=== PATIENT | male | born 1980 | race African-American/Black ===

== ENCOUNTER 2018-06-24 14:07 | Emergency (ER) | payer OTHER ==
[2018-06-24 14:26] VITALS: TEMP 98.8; BMI 22.4
--- NOTE | 2018-06-24 16:54 | PDOC ---
History of Present Illness - General Chief Complaint: Alcohol intoxication Stated Complaint: DETOX Time Seen by Provider: 06/24/18 14:28 History Source: Patient Exam Limitations: No Limitations, Intoxication - History of Present Illness Initial Comments: CHIEF COMPLAINT: 38 y/o male who is intoxicated is here requesting detox. HISTORY OF PRESENT ILLNESS: The patient denies all complaints. He states he's been drinking a 12 pack of beer and a bottle of alcohol every day for the past 25 years and wants help. He has never been to detox in the past. Vital signs on arrival are within normal limits. REVIEW OF SYSTEMS: GENERAL/CONSTITUTIONAL: No fever/chills. HEAD, EYES, EARS, NOSE AND THROAT: No sore throat. CARDIOVASCULAR: No chest pain or shortness of breath. RESPIRATORY: No cough, wheezing, or hemoptysis. GASTROINTESTINAL: No n/v/d. GENITOURINARY: No dysuria, frequency, or change in urination. MUSCULOSKELETAL: No joint or muscle swelling or pain. No neck or back pain. SKIN: No rash or easy bruising. NEUROLOGIC: No headache, LOC. PHYSICAL EXAM: GENERAL: The patient is drowsy, intoxicated, slurring his speech but able to answer questions. HEAD: Normal with no signs of trauma. ENT: Pupils equal, round and reactive to light, extraocular movements intact, sclera anicteric, injected conjunctiva b/l. Neck supple. LUNGS: Clear to auscultation bilaterally. Normal excursion. No respiratory distress or use of accessory muscles. CV: RRR, S1/S2, no MRG. Cap refill < 2 sec. ABDOMEN: Soft, non-distended, non-tender even to deep palpation, no hepatomegaly or splenomegaly, no masses. EXTREMITIES: Normal range of motion, no edema. No tremors NEUROLOGICAL: Slurred speech, normal gait. SKIN: Warm, dry, normal turgor, no rashes or lesions noted. Past History - Past Medical History Allergies/Adverse Reactions: Allergies Allergy/AdvReac Type Severity Reaction Status Date / Time No Known Allergies Allergy Verified 06/24/18 14:24 Home Medications: Ambulatory Orders Unobtainable 06/24/18 COPD: No - Suicide/Smoking/Psychosocial Hx Smoking History: Current every day smoker Have you smoked in the past 12 months: Yes Number of Cigarettes Smoked Daily: 20 Information on smoking cessation initiated: No Hx Alcohol Use: Yes Drug/Substance Use Hx: No Substance Use Type: Alcohol *Physical Exam - Vital Signs Last Vital Signs Temp Pulse Resp BP Pulse Ox 98.8 F 90 18 124/90 98 06/24/18 14:16 06/24/18 14:16 06/24/18 14:16 06/24/18 14:16 06/24/18 14:16 Medical Decision Making - Medical Decision Making A/P: 38 y/o male who is intoxicated and would like detox. [facility] and they have no beds. Patient can walk with normal gait. Patient was willing to do push ups in the ER. Will discharge him from the ER and instructed him to try [facility] tomorrow. The patient verbalizes understanding of all instructions, has no further questions and is awaiting discharge. *DC/Admit/Observation/Transfer Diagnosis at time of Disposition: Alcohol intoxication Qualifiers: Complication of substance-induced condition: uncomplicated Qualified Code(s): F10.920 - Alcohol use, unspecified with intoxication, uncomplicated - Discharge Dispostion Disposition: HOME Condition at time of disposition: Good - Referrals Referrals: Katy Coyle [Primary Care Provider] - - Patient Instructions Printed Discharge Instructions: DI for Alcohol Abuse Additional Instructions: -Please try going to [facility] tomorrow for an open bed - Post Discharge Activity
[2018-06-24 18:14] VITALS: BP 109/78; PULSE 89
== END 2018-06-24 18:14 | disposition home or self-care (01) ==
LOC: JER 14:07
DX: F10.920 Alcohol use, unspecified with intoxication, uncomplicated (principal)
CPT/HCPCS: 99282-25

== ENCOUNTER 2018-06-24 19:27 | Inpatient (IN) | payer OTHER ==
[2018-06-24 20:48] VITALS: BMI 26.7
[2018-06-24] MEDS ORDERED: MELATONIN 5 MG TABLETS PO PRN (22:00)
--- NOTE | 2018-06-24 23:52 | HP ---
CIWA Score - CIWA Score Nausea/Vomitin (vomiting x 4) Muscle Tremors: 4-Moderate,w/Arms Extend Anxiety: 3 Agitation: 0-Normal Activity Paroxysmal Sweats: 1-Minimal Palms Moist Orientation: 2-Disoriented Date<2 days Tacttile Disturbances: 0-None Auditory Disturbances: 0-None Visual Disturbances: 0-None Headache: 3-Moderate CIWA-Ar Total Score: 16 Admission ROS S - HPI Chief Complaint: Alcohol withdrawal symptoms Allergies/Adverse Reactions: Allergies Allergy/AdvReac Type Severity Reaction Status Date / Time No Known Allergies Allergy Verified 06/24/18 14:24 History of Present Illness: 38 years old male with a long history of alcohol dependence is seeking admission to detox. Patient has been in previous detox and reports insignificant period of sobriety. He has medical history of depression and denies suicidal ideation at this time Exam Limitations: No Limitations, Intoxication - Ebola screening Have you traveled outside of the country in the last 21 days: No Have you had contact with anyone from an Ebola affected area: No Have you been sick,other than usual withdrawal symptoms: No Do you have a fever: No - Review of Systems Constitutional: Chills, Night Sweats EENT: reports: No Symptoms Reported Respiratory: reports: No Symptoms reported Cardiac: reports: No Symptoms Reported GI: reports: Nausea, Poor Appetite, Poor Fluid Intake, Vomiting, Abdominal cramping Musculoskeletal: reports: Back Pain Integumentary: reports: Dryness Neuro: reports: Headache, Tremors Endocrine: reports: No Symptoms Reported Hematology: reports: No Symptoms Reported Psychiatric: reports: Anxious, Depressed Other Systems: Reviewed and Negative Patient History - Patient Medical History Hx Anemia: No Hx Asthma: No Hx Chronic Obstructive Pulmonary Disease (COPD): No Hx Cancer: No Hx Cardiac Disorders: No Hx Congestive Heart Failure: No Hx Hypertension: No Hx Pacemaker: No HX Cerebrovascular Accident: No Hx Seizures: No Hx Dementia: No Hx Diabetes: No Hx Gastrointestinal Disorders: No Hx Liver Disease: No Hx Genitourinary Disorders: No Hx Sexually Transmitted Disorders: No Hx Renal Disease (ESRD): No Hx Thyroid Disease: No Hx Human Immunodeficiency Virus (HIV): No (Negative 2017) Hx Hepatitis C: No Hx Depression: Yes Hx Suicide Attempt: No Hx Bipolar Disorder: No Hx Schizophrenia: No - Patient Surgical History Past Surgical History: No Hx Neurologic Surgery: No Hx Cataract Extraction: No Hx Cardiac Surgery: No Hx Lung Surgery: No Hx Breast Surgery: No Hx Breast Biopsy: No Hx Abdominal Surgery: No Hx Appendectomy: No Hx Cholecystectomy: No Hx Genitourinary Surgery: No Hx Section: No Hx Orthopedic Surgery: No Anesthesia Reaction: No - PPD History Previous Implant?: Yes Documented Results: Negative w/o proof Implanted On Prior [facility] Admission?: No PPD to be Administered?: Yes - Reproductive History Patient is a Female of Child Bearing Age (11 -55 yrs old): No (Male) - Smoking Cessation Smoking history: Current every day smoker Have you smoked in the past 12 months: Yes Aproximately how many cigarettes per day: 20 Hx Chewing Tobacco Use: No Initiated information on smoking cessation: Yes 'Breaking Loose' booklet given: 06/24/18 - Substance & Tx. History Hx Alcohol Use: Yes Hx Substance Use: No Hx Substance Use Treatment: Yes - Substances Abused Alcohol Route: Oral Frequency: Daily Amount used: LIQUOR- 3 PINTS, BEER= 3 SIX PACK Age of first use: 13 Date of Last Use: 06/24/18 Family Disease History - Family Disease History Family Disease History: Diabetes: Mother (Bipolar, schizophrenia), Heart Disease : Mother, Other: Mother Admission Physical Exam [facility] - Vital Signs Vital Signs: Vital Signs - 24 hr 06/24/18 20:46 Temperature 98.1 F Pulse Rate 105 H Respiratory 18 Rate Blood Pressure 129/87 - Physical General Appearance: Yes: Moderate Distress, Tremorous, Irritable, Sweating, Anxious HEENTM: Yes: EOMI, Normal ENT Inspection, Normocephalic, Normal Voice, BRADY Respiratory: Yes: Lungs Clear, Normal Breath Sounds, No Respiratory Distress Neck: Yes: Supple Breast: Yes: Breast Exam Deferred Cardiology: Yes: Tachycardia Abdominal: Yes: Normal Bowel Sounds, Soft Back: Yes: Normal Inspection Musculoskeletal: Yes: Back pain Extremities: Yes: Tremors 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
[2018-06-24] MEDS ORDERED: MAGNESIUM HYDROX 2400MG/30ML ORAL SUSPENSION 30 ML CUP PO PRN (23:57)
[2018-06-24] MEDS ORDERED: guaiFENesin/D-METHORPHAN HB 10 ML UNIT-DOSE CUPS PO PRN (23:57)
[2018-06-24] MEDS ORDERED: P-EPHED 60MG/TRIPROLIDI 2.5MG TABLET PO PRN (23:57)
[2018-06-24] MEDS ORDERED: NICOTINE POLACRILEX 2 MG GUM BC PRN (23:57)
[2018-06-24] MEDS ORDERED: MAG HYDROX/AL HYDROX/SIMETH 30 ML UNIT-DOSE CUP PO PRN (23:57)
[2018-06-24] MEDS ORDERED: MENTHOL/PHENOL 1 EACH UD MM PRN (23:57)
[2018-06-24] MEDS ORDERED: IBUPROFEN 400 MG TABLET (FP) PO PRN (23:57)
[2018-06-24] MEDS ORDERED: LOPERAMIDE HCL 2 MG CAPSULE PO PRN (23:57)
[2018-06-24] MEDS ORDERED: chlordiazePOXIDE HCL 25 MG CAPSULE PO PRN (23:57)
[2018-06-24] MEDS ORDERED: ACETAMINOPHEN 325 MG TABLET (FP) PO PRN (23:57)
[2018-06-24] MEDS ORDERED: chlordiazePOXIDE HCL 25 MG CAPSULE PO ONE (23:57)
[2018-06-24] MEDS ORDERED: MAGNESIUM CITRATE 300 ML BOTTLE PO PRN (23:57)
[2018-06-25] MEDS: chlordiazePOXIDE HCL 25 MG CAPSULE PO SCH ×5 (01:21→23:08)
[2018-06-25] MEDS ORDERED: chlordiazePOXIDE HCL 25 MG CAPSULE PO PRN (01:31)
[2018-06-25] MEDS ORDERED: chlordiazePOXIDE HCL 25 MG CAPSULE PO SCH (05:00)
[2018-06-25 10:54] LABS: HEMOGLOBIN 11.3 GM/dL (11.7-16.9)
[2018-06-25] MEDS: NICOTINE 14 MG/24 HOURS TOPICAL PATCH TD SCH (10:55)
[2018-06-25] MEDS: PRENATAL VITAMINS W/ FOLIC ACID TABLET (FP) PO SCH (10:55)
[2018-06-25 10:56] LABS: URINE APPEARANCE CLEAR; URINE BILIRUBIN NEGATIVE (<2.0 mg/dL); URINE COLOR DKYELLOW; URINE GLUCOSE (UA) NEGATIVE (NEGATIVE); URINE KETONE TRACE (NEGATIVE); URINE LEUK ESTERASE NEGATIVE (NEGATIVE); URINE NITRITE NEGATIVE (NEGATIVE)
[2018-06-25 10:57] LABS: HEMATOCRIT 35.4 % (35.4-49); MCH 24.2 pg (25.7-33.7); MCHC 31.9 g/dl (32.0-35.9); MEAN CELL VOLUME 75.9 fl (80-96); MEAN PLT VOLUME 8.7 fl (7.5-11.1); PLATELET COUNT 182 K/MM3 (134-434); RBC 4.67 M/mm3 (4.00-5.60); RDW 15.4 % (11.9-15.9); WHITE BLOOD COUNT 4.6 K/mm3 (4.0-10.0)
[2018-06-25 11:18] LABS: URINE PROTEIN 2+ (NEGATIVE)
[2018-06-25 11:21] LABS: EPI CELLS RARE /HPF (FEW); URINE HYALINE CAST 7 /lpf; URINE MUCUS RARE
[2018-06-25 11:36] LABS: ALBUMIN 4.2 g/dl (3.4-5.0); ANION GAP 11 MMOL/L (8-16); BLOOD UREA NITROGEN 11 mg/dL (7-18); CALCIUM 9.5 mg/dL (8.5-10.1); CHLORIDE 98 mmol/L (98-107); CO2 29 mmol/L (21-32); GLUCOSE,RANDOM 133 mg/dL (74-106); POTASSIUM 4.1 mmol/L (3.5-5.1); SODIUM 138 mmol/L (136-145)
[2018-06-25 11:45] LABS: ALK PHOS 72 U/L (45-117); BILIRUBIN,TOTAL 0.3 mg/dL (0.2-1.0); SGOT/AST 43 U/L (15-37); SGPT/ALT 45 U/L (13-61); TOT PROT 9.5 g/dl (6.4-8.2)
--- NOTE | 2018-06-25 14:42 | CONSULT ---
[facility] Psychiatric Consult - Data Date of interview: 06/25/18 Admission source: [facility] Identifying data: First admission to [facility] for this 38 y/o Aa male self- referred for detoxification treatment (alcohol dependence).patient is single,a father of two,domiciled,unemployed and supported by relatives. Substance Abuse History: Confirmed in this interview.Mr He endorses a long standing history of alcohol dependence.Consumes 2-3 pints of liquor daily + 2 six packs of beer. More details in current [facility] report.Smoking history: Current every day smoker. Have you smoked in the past 12 months: Yes. Aproximately how many cigarettes per day: 20. Hx Chewing Tobacco Use: No. Initiated information on smoking cessation: Yes. 'Breaking Loose' booklet given : 06/24/18. - Substance & Tx. History. Hx Alcohol Use: Yes. Hx Substance Use : No. Hx Substance Use Treatment: Yes. - Substances Abused. Alcohol. Route: Oral. Frequency: Daily. Amount used: LIQUOR- 3 PINTS, BEER= 3 SIX PACK. Age of first use: 13. Date of Last Use: 06/24/18 Medical History: Patient endorses good general health. Psychiatric History: Patient admits to a history of two psychiatric hospitalizations ([facility] in [place]).Diagnosed with MDD.Mr He states that he has no contact with psychiatrist.Does not attend OPD clinics.Lost to follow up after his discharge in early 2018.History of one suicide attempt via overdose with pills (no recall of date). Physical/Sexual Abuse/Trauma History: Patient denies. Additional Comment: Drug Screen is negative. Mental Status Exam - Mental Status Exam Alert and Oriented to: Time, Place, Person Cognitive Function: Good Patient Appearance: Well Groomed Mood: Nervous, Withdrawn Affect: Mood Congruent Patient Behavior: Fatigued, Appropriate, Cooperative Speech Pattern: Clear Voice Loudness: Normal Thought Process: Intact, Goal Oriented Thought Disorder: Not Present Hallucinations: Denies Suicidal Ideation: Denies Homicidal Ideation: Denies Insight/Judgement: Poor Sleep: Poorly, Difficulty falling asleep Appetite: Good Muscle strength/Tone: Normal Gait/Station: Normal Psychiatric Findings - Problem List ([place] 1, 2,3) (1) Alcohol dependence with uncomplicated withdrawal Current Visit: Yes Status: Acute (2) Insomnia Current Visit: Yes Status: Acute - Initial Treatment Plan Initial Treatment Plan: Psychoeducation.Sleep hygiene.Detoxification.Groups.AA meetings.Insomnia is addressed with ambien 10 mg po hs prn.Patient made aware of risk of parasomnias.Agrees to this careplan.Observation.
--- NOTE | 2018-06-25 15:27 | PN ---
S CIWA - CIWA Score Nausea/Vomitin-No Nausea/No Vomiting Muscle Tremors: 1-None Visible, but [place] Anxiety: 0-No Anxiety, at Ease Agitation: 1-Slight > Activity Paroxysmal Sweats: 1-Minimal Palms Moist Orientation: 0-Oriented Tacttile Disturbances: 0-None Auditory Disturbances: 0-None Visual Disturbances: 0-None Headache: 0-None Present CIWA-Ar Total Score: 3 [facility] Progress Note (SOAP) Subjective: pt states he is feeling fine- on detox protocol o: Vital Signs - 24 hr 06/24/18 06/25/18 06/25/18 20:46 01:00 01:19 Temperature 98.1 F 97.7 F Pulse Rate 105 H 94 H 94 H Respiratory 18 20 20 Rate Blood Pressure 129/87 135/91 06/25/18 06/25/18 06/25/18 01:30 02:00 02:30 Temperature Pulse Rate 94 H 92 H 92 H Respiratory 20 20 20 Rate Blood Pressure 06/25/18 06/25/18 06/25/18 03:00 03:30 04:00 Temperature Pulse Rate 94 H 90 90 Respiratory 20 18 18 Rate Blood Pressure 06/25/18 06/25/18 06/25/18 04:30 05:00 05:30 Temperature Pulse Rate 88 88 74 Respiratory 18 18 18 Rate Blood Pressure 06/25/18 06/25/18 06/25/18 06:00 06:30 07:00 Temperature Pulse Rate 74 72 72 Respiratory 18 18 18 Rate Blood Pressure 06/25/18 06/25/18 06/25/18 07:16 07:20 08:00 Temperature 96.4 F L Pulse Rate 69 74 79 Respiratory 18 18 18 Rate Blood Pressure 122/68 06/25/18 06/25/18 06/25/18 08:30 08:49 09:00 Temperature 98.1 F Pulse Rate 82 83 88 Respiratory 18 Rate Blood Pressure 135/86 06/25/18 06/25/18 06/25/18 09:30 10:00 10:30 Temperature Pulse Rate 82 77 80 Respiratory 18 18 18 Rate Blood Pressure 06/25/18 14:06 Temperature 99.9 F H Pulse Rate 79 Respiratory 16 Rate Blood Pressure 127/72 Laboratory Tests 06/25/18 06/25/18 06/25/18 07:50 07:50 07:50 WBC 4.6 RBC 4.67 Hgb 11.3 L Hct 35.4 MCV 75.9 L MCH 24.2 L MCHC 31.9 L RDW 15.4 Plt Count 182 MPV 8.7 Sodium Potassium Chloride Carbon Dioxide Anion Gap BUN Creatinine Creat Clearance w eGFR Random Glucose Calcium Total Bilirubin AST ALT Alkaline Phosphatase Total Protein Albumin Urine Color Urine Appearance Urine pH Ur Specific [place] Urine Protein Urine Glucose (UA) Urine Ketones Urine Blood Urine Nitrite Urine Bilirubin Urine Urobilinogen Ur Leukocyte Esterase Urine WBC (Auto) Urine RBC (Auto) Ur Epithelial Cells Hyaline Casts Urine Mucus RPR Titer Nonreactive HIV 1&2 Antibody Screen Negative HIV P24 Antigen Negative 06/25/18 06/25/18 07:50 08:30 WBC RBC Hgb Hct MCV MCH MCHC RDW Plt Count MPV Sodium 138 Potassium 4.1 Chloride 98 Carbon Dioxide 29 Anion Gap 11 BUN 11 Creatinine 1.0 Creat Clearance w eGFR > 60 Random Glucose 133 H Calcium 9.5 Total Bilirubin 0.3 AST 43 H ALT 45 Alkaline Phosphatase 72 Total Protein 9.5 H Albumin 4.2 Urine Color Dkyellow Urine Appearance Clear Urine pH 5.0 Ur Specific [place] 1.029 Urine Protein 2+ H Urine Glucose (UA) Negative Urine Ketones Trace H Urine Blood 1+ H Urine Nitrite Negative Urine Bilirubin Negative Urine Urobilinogen 2.0 Ur Leukocyte Esterase Negative Urine WBC (Auto) 6 Urine RBC (Auto) 2 Ur Epithelial Cells Rare Hyaline Casts 7 Urine Mucus Rare RPR Titer HIV 1&2 Antibody Screen HIV P24 Antigen mild anemia with low MCV, o/w ess nl labs a/p: 38 years old male with a long history of alcohol dependence is here for detox- doing well. continue detox protocol
[2018-06-25] MEDS ORDERED: ZOLPIDEM TARTRATE 5 MG TABLET PO PRN (22:00)
[2018-06-25] MEDS: THIAMINE HCL 100 MG TABLET (FP) PO SCH (23:08)
[2018-06-26] MEDS ORDERED: chlordiazePOXIDE 5 MG CAPSULE PO SCH (05:00)
[2018-06-26] MEDS: chlordiazePOXIDE HCL 25 MG CAPSULE PO SCH ×4 (06:28→23:41)
[2018-06-26] MEDS: NICOTINE 14 MG/24 HOURS TOPICAL PATCH TD SCH (10:56)
[2018-06-26] MEDS: PRENATAL VITAMINS W/ FOLIC ACID TABLET (FP) PO SCH (10:56)
--- NOTE | 2018-06-26 15:59 | PN ---
S CIWA - CIWA Score Nausea/Vomitin-No Nausea/No Vomiting Muscle Tremors: 3 Anxiety: 3 Agitation: 3 Paroxysmal Sweats: 1-Minimal Palms Moist Orientation: 1-Uncertain about Date Tacttile Disturbances: 1-Very Mild Itch/Numbness Auditory Disturbances: 0-None Visual Disturbances: 0-None Headache: 0-None Present CIWA-Ar Total Score: 12 [facility] Progress Note (SOAP) Subjective: sweat tremor restlessness anxiety Objective: 06/26/18 16:00 Vital Signs Temperature 98.2 F 06/26/18 13:46 Pulse Rate 654 H 06/26/18 13:46 Respiratory Rate 18 06/26/18 13:46 Blood Pressure 118/70 06/26/18 13:46 O2 Sat by Pulse Oximetry (%) Laboratory Last Values WBC 4.6 K/mm3 (4.0-10.0) 06/25/18 07:50 RBC 4.67 M/mm3 (4.00-5.60) 06/25/18 07:50 Hgb 11.3 GM/dL (11.7-16.9) L 06/25/18 07:50 Hct 35.4 % (35.4-49) 06/25/18 07:50 MCV 75.9 fl (80-96) L 06/25/18 07:50 MCH 24.2 pg (25.7-33.7) L 06/25/18 07:50 MCHC 31.9 g/dl (32.0-35.9) L 06/25/18 07:50 RDW 15.4 % (11.9-15.9) 06/25/18 07:50 Plt Count 182 K/MM3 (134-434) 06/25/18 07:50 MPV 8.7 fl (7.5-11.1) 06/25/18 07:50 Sodium 138 mmol/L (136-145) 06/25/18 08:30 Potassium 4.1 mmol/L (3.5-5.1) 06/25/18 08:30 Chloride 98 mmol/L (98-107) 06/25/18 08:30 Carbon Dioxide 29 mmol/L (21-32) 06/25/18 08:30 Anion Gap 11 MMOL/L (8-16) 06/25/18 08:30 BUN 11 mg/dL (7-18) 06/25/18 08:30 Creatinine 1.0 mg/dL (0.55-1.3) 06/25/18 08:30 Creat Clearance w eGFR > 60 (>60) 06/25/18 08:30 Random Glucose 133 mg/dL (74-106) H 06/25/18 08:30 Calcium 9.5 mg/dL (8.5-10.1) 06/25/18 08:30 Total Bilirubin 0.3 mg/dL (0.2-1.0) 06/25/18 08:30 AST 43 U/L (15-37) H 06/25/18 08:30 ALT 45 U/L (13-61) 06/25/18 08:30 Alkaline Phosphatase 72 U/L (45-117) 06/25/18 08:30 Total Protein 9.5 g/dl (6.4-8.2) H 06/25/18 08:30 Albumin 4.2 g/dl (3.4-5.0) 06/25/18 08:30 Urine Color Dkyellow 06/25/18 07:50 Urine Appearance Clear 06/25/18 07:50 Urine pH 5.0 (5.0-8.0) 06/25/18 07:50 Ur Specific [place] 1.029 (1.001-1.035) 06/25/18 07:50 Urine Protein 2+ (NEGATIVE) H 06/25/18 07:50 Urine Glucose (UA) Negative (NEGATIVE) 06/25/18 07:50 Urine Ketones Trace (NEGATIVE) H 06/25/18 07:50 Urine Blood 1+ (NEGATIVE) H 06/25/18 07:50 Urine Nitrite Negative (NEGATIVE) 06/25/18 07:50 Urine Bilirubin Negative (<2.0 mg/dL) 06/25/18 07:50 Urine Urobilinogen 2.0 mg/dL (0.2-1.0) 06/25/18 07:50 Ur Leukocyte Esterase Negative (NEGATIVE) 06/25/18 07:50 Urine WBC (Auto) 6 /hpf (3-5) 06/25/18 07:50 Urine RBC (Auto) 2 /hpf (0-3) 06/25/18 07:50 Ur Epithelial Cells Rare /HPF (FEW) 06/25/18 07:50 Hyaline Casts 7 /lpf 06/25/18 07:50 Urine Mucus Rare 06/25/18 07:50 RPR Titer Nonreactive (NONREACTIVE) 06/25/18 07:50 HIV 1&2 Antibody Screen Negative 06/25/18 07:50 HIV P24 Antigen Negative 06/25/18 07:50 lab noted Assessment: 06/26/18 16:00 withdrawal sx Plan: continue detox
--- NOTE | 2018-06-26 22:32 | EKG ---
Test Reason : Blood Pressure : / mmHG Vent. Rate : 090 BPM Atrial Rate : 090 BPM P-R Int : 144 ms QRS Dur : 096 ms QT Int : 356 ms P-R-T Axes : 080 068 063 degrees QTc Int : 435 ms NORMAL SINUS RHYTHM NORMAL ECG NO PREVIOUS ECGS AVAILABLE Confirmed by MELISSA HOOD MD ([id number]) on 06/26/2018 10:31:44 PM Referred By: Confirmed By:MELISSA HOOD MD
[2018-06-26] MEDS: THIAMINE HCL 100 MG TABLET (FP) PO SCH (23:42)
[2018-06-27] MEDS ORDERED: chlordiazePOXIDE HCL 10 MG CAPSULE PO SCH (05:00)
[2018-06-27] MEDS ORDERED: chlordiazePOXIDE 5 MG CAPSULE PO SCH (05:00)
--- NOTE | 2018-06-27 08:56 | PN ---
S Progress Note (SOAP) Assessment: 06/27/18 08:57 mild withdrawal sx Plan: medically supervised detox
[2018-06-27 09:23] VITALS: BP 125/81; PULSE 70; TEMP 97.9
--- NOTE | 2018-06-27 10:12 | DS ---
[facility] Detox Discharge Summary Admission Date: 06/24/18 Discharge Date: 06/27/18 - History Present History: Alcohol Dependence Additional Comments: 38 years old male admitted on 06/21/18 for alcohol withdrawal sx denies alcohol withdrawal sx today, alert oriented x 3 no acute distress, wants to return to the medical center for medical mental and addiction issues today - Physical Exam Results Vital Signs: Vital Signs Temperature 97.9 F 06/27/18 09:22 Pulse Rate 70 06/27/18 09:22 Respiratory Rate 18 06/27/18 09:22 Blood Pressure 125/81 06/27/18 09:22 O2 Sat by Pulse Oximetry (%) Pertinent Admission Physical Exam Findings: alcohol withdrawal sx Vital Signs Temperature 97.9 F 06/27/18 09:22 Pulse Rate 70 06/27/18 09:22 Respiratory Rate 18 06/27/18 09:22 Blood Pressure 125/81 06/27/18 09:22 O2 Sat by Pulse Oximetry (%) Laboratory Last Values WBC 4.6 K/mm3 (4.0-10.0) 06/25/18 07:50 RBC 4.67 M/mm3 (4.00-5.60) 06/25/18 07:50 Hgb 11.3 GM/dL (11.7-16.9) L 06/25/18 07:50 Hct 35.4 % (35.4-49) 06/25/18 07:50 MCV 75.9 fl (80-96) L 06/25/18 07:50 MCH 24.2 pg (25.7-33.7) L 06/25/18 07:50 MCHC 31.9 g/dl (32.0-35.9) L 06/25/18 07:50 RDW 15.4 % (11.9-15.9) 06/25/18 07:50 Plt Count 182 K/MM3 (134-434) 06/25/18 07:50 MPV 8.7 fl (7.5-11.1) 06/25/18 07:50 Sodium 138 mmol/L (136-145) 06/25/18 08:30 Potassium 4.1 mmol/L (3.5-5.1) 06/25/18 08:30 Chloride 98 mmol/L (98-107) 06/25/18 08:30 Carbon Dioxide 29 mmol/L (21-32) 06/25/18 08:30 Anion Gap 11 MMOL/L (8-16) 06/25/18 08:30 BUN 11 mg/dL (7-18) 06/25/18 08:30 Creatinine 1.0 mg/dL (0.55-1.3) 06/25/18 08:30 Creat Clearance w eGFR > 60 (>60) 06/25/18 08:30 Random Glucose 133 mg/dL (74-106) H 06/25/18 08:30 Calcium 9.5 mg/dL (8.5-10.1) 06/25/18 08:30 Total Bilirubin 0.3 mg/dL (0.2-1.0) 06/25/18 08:30 AST 43 U/L (15-37) H 06/25/18 08:30 ALT 45 U/L (13-61) 06/25/18 08:30 Alkaline Phosphatase 72 U/L (45-117) 06/25/18 08:30 Total Protein 9.5 g/dl (6.4-8.2) H 06/25/18 08:30 Albumin 4.2 g/dl (3.4-5.0) 06/25/18 08:30 Urine Color Dkyellow 06/25/18 07:50 Urine Appearance Clear 06/25/18 07:50 Urine pH 5.0 (5.0-8.0) 06/25/18 07:50 Ur Specific [place] 1.029 (1.001-1.035) 06/25/18 07:50 Urine Protein 2+ (NEGATIVE) H 06/25/18 07:50 Urine Glucose (UA) Negative (NEGATIVE) 06/25/18 07:50 Urine Ketones Trace (NEGATIVE) H 06/25/18 07:50 Urine Blood 1+ (NEGATIVE) H 06/25/18 07:50 Urine Nitrite Negative (NEGATIVE) 06/25/18 07:50 Urine Bilirubin Negative (<2.0 mg/dL) 06/25/18 07:50 Urine Urobilinogen 2.0 mg/dL (0.2-1.0) 06/25/18 07:50 Ur Leukocyte Esterase Negative (NEGATIVE) 06/25/18 07:50 Urine WBC (Auto) 6 /hpf (3-5) 06/25/18 07:50 Urine RBC (Auto) 2 /hpf (0-3) 06/25/18 07:50 Ur Epithelial Cells Rare /HPF (FEW) 06/25/18 07:50 Hyaline Casts 7 /lpf 06/25/18 07:50 Urine Mucus Rare 06/25/18 07:50 RPR Titer Nonreactive (NONREACTIVE) 06/25/18 07:50 HIV 1&2 Antibody Screen Negative 06/25/18 07:50 HIV P24 Antigen Negative 06/25/18 07:50 lab noted - Treatment Hospital Course: Detox Protocol Followed, Detoxed Safely, Responded well, Discharged Condition Good, Rehab Referral Accepted Patient has Accepted a Rehab Referral to: the medical center - Medication Discharge Medications: Ambulatory Orders Unobtainable 06/24/18 - Diagnosis (1) Alcohol dependence with uncomplicated withdrawal Status: Acute - AMA Did Patient Leave Against Medical Advice: No
[2018-06-28] MEDS ORDERED: chlordiazePOXIDE HCL 10 MG CAPSULE PO SCH (05:00)
== END 2018-06-27 10:50 | disposition home or self-care (01) | DRG 775 ==
LOC: YASAS 19:27 → Y6N 23:36
PROC: HZ2ZZZZ Detoxification Services for Substance Abuse Treatment (ICD-10-PCS; principal; 2018-06-24)
DX: F10.230 Alcohol dependence with withdrawal, uncomplicated (principal); F33.9 Major depressive disorder, recurrent, unspecified; G47.00 Insomnia, unspecified; Z91.5 Personal history of self-harm
CPT/HCPCS: 36415; 80053; 81003; 81015; 85027; 86593; 87389; 93005; 93010

== ENCOUNTER 2018-06-29 03:21 | Emergency (ER) | payer OTHER ==
[2018-06-29 03:33] VITALS: BP 103/72; PULSE 98; TEMP 97.8; BMI 23.7
--- NOTE | 2018-06-29 06:43 | PDOC ---
History of Present Illness - History of Present Illness Initial Comments: 06/29/18 06:31 The patient is a 38 year old male, with a significant past medical history of alcohol abuse, who presents to the emergency department withalcohol intoxication. As per patient, he drank an excessive amount of Jordyn and a 6 pack of 12 oz beers while watching a football game. He notes that he drinks a 12 pack of beer and a bottle of alcohol every day for the past 25 years. While in the ED, he requests detox. The patient is a poor historian due to his alcohol intoxication. He denies trauma, recent fevers, chills, headache or dizziness. He denies any recent nausea, vomit, diarrhea or constipation. He denies any recent chest pain or shortness of breath. He denies any recent dysuria, frequency, urgency or hematuria. Allergies: NKA Past surgical history: None reported. Social History: Alcohol abuse. Denies drug use. <Erickson Myles - Last Filed: 06/29/18 06:31> <Mili Peralta - Last Filed: 06/29/18 07:00> - General Chief Complaint: Alcohol intoxication Stated Complaint: INTOX Time Seen by Provider: 06/29/18 04:45 Past History - Past Medical History Anemia: No Asthma: No Cancer: No Cardiac Disorders: No CVA: No COPD: No CHF: No Dementia: No Diabetes: No GI Disorders: No Disorders: No HTN: No Kidney Stones: No Liver Disease: No Seizures: No Thyroid Disease: No - Surgical History Abdominal Surgery: No Appendectomy: No Cardiac Surgery: No Cholecystectomy: No Lung Surgery: No Neurologic Surgery: No Orthopedic Surgery: No - Reproductive History Testicular Surgery: No - Suicide/Smoking/Psychosocial Hx Smoking History: Current every day smoker Have you smoked in the past 12 months: Yes Number of Cigarettes Smoked Daily: 20 Information on smoking cessation initiated: No 'Breaking Loose' booklet given: 06/24/18 Hx Alcohol Use: Yes Drug/Substance Use Hx: No (unknown) Substance Use Type: Alcohol Hx Substance Use Treatment: Yes <Erickson Myles - Last Filed: 06/29/18 06:31> <Mili Peralta - Last Filed: 06/29/18 07:00> - Past Medical History Allergies/Adverse Reactions: Allergies Allergy/AdvReac Type Severity Reaction Status Date / Time No Known Allergies Allergy Verified 06/29/18 05:13 Home Medications: Ambulatory Orders Unobtainable 06/24/18 Review of Systems - Review of Systems Comments:: 06/29/18 06:34 GENERAL/CONSTITUTIONAL: Intoxicated. No fever or chills. No weakness. HEAD, EYES, EARS, NOSE AND THROAT: No change in vision. No ear pain or discharge. No sore throat. GASTROINTESTINAL: No nausea, vomiting, diarrhea or constipation. GENITOURINARY: No dysuria, frequency, or change in urination. CARDIOVASCULAR: No chest pain or shortness of breath. RESPIRATORY: No cough, wheezing, or hemoptysis. MUSCULOSKELETAL: No joint or muscle swelling or pain. No neck or back pain. SKIN: No rash NEUROLOGIC: No headache, vertigo, loss of consciousness, or change in strength/ sensation. ENDOCRINE: No increased thirst. No abnormal weight change. HEMATOLOGIC/LYMPHATIC: No anemia, easy bleeding, or history of blood clots. ALLERGIC/IMMUNOLOGIC: No hives or skin allergy. <Nassef,Yomna - Last Filed: 06/29/18 06:31> *Physical Exam - Vital Signs Last Vital Signs Temp Pulse Resp BP Pulse Ox 97.8 F 98 H 18 103/72 97 06/29/18 03:31 06/29/18 03:31 06/29/18 03:31 06/29/18 03:31 06/29/18 03:31 - Physical Exam Comments: 06/29/18 06:34 GENERAL: Alcohol on breath. Awake, alert, and fully oriented, in no acute distress. Ambulating in ED with steady gait HEAD: No signs of trauma EYES: PERRLA, EOMI, sclera anicteric ENT: Auricles normal inspection, nares patent, oropharynx clear without exudates. Moist mucosa NECK: Normal ROM, supple, no lymphadenopathy, JVD, or masses LUNGS: Breath sounds equal, clear to auscultation bilaterally. No wheezes, and no crackles HEART: Regular rate and rhythm, normal S1 and S2, no murmurs, rubs or gallops ABDOMEN: Soft, nontender, normoactive bowel sounds. No guarding, no rebound. No masses EXTREMITIES: Normal range of motion, no edema. No clubbing or cyanosis. No cords , erythema, or tenderness BACK: No midline spinal tenderness in cervical/thoracic/lumbar region NEUROLOGICAL: Normal speech, cranial nerves intact, 5/5 strength in all 4 extremities, normal sensation to light touch in all 4 extremities, normal gait, normal tone SKIN: Warm, Dry, normal turgor, no rashes or lesions noted. <Erickson Myles - Last Filed: 06/29/18 06:31> - Vital Signs Last Vital Signs Temp Pulse Resp BP Pulse Ox 97.8 F 98 H 18 103/72 97 06/29/18 03:31 06/29/18 03:31 06/29/18 03:31 06/29/18 03:31 06/29/18 03:31 <Mili Peralta - Last Filed: 06/29/18 07:00> Medical Decision Making - Medical Decision Making 06/29/18 05:00 38yo M hx etoh abuse presents to the ED with etoh intoxication, requesting detox. No evidence of trauma. Pt ate sandwich on arrival, now sleeping. Will reassess when clinically sober. 06/29/18 06:44 Pt ambulating in ED with steady gait. On re-evaluation, no evidence of trauma. Pt is clinically sober. Requests transfer to detox. [facility] <Erickson Myles - Last Filed: 06/29/18 06:31> - Medical Decision Making 06/29/18 06:40am Call placed to [facility] for admission, no response. 6:45am Second call placed to [facility] for admission, no response. 6:55am Third call placed to [facility] for admission, no response. 7:00am Fourth call placed to [facility] for admission, no response. <Mili Peralta - Last Filed: 06/29/18 07:00>
--- NOTE | 2018-06-29 07:26 | PDOC ---
*Physical Exam - Vital Signs Last Vital Signs Temp Pulse Resp BP Pulse Ox 97.8 F 98 H 18 103/72 97 06/29/18 03:31 06/29/18 03:31 06/29/18 03:31 06/29/18 03:31 06/29/18 03:31 Medical Decision Making - Medical Decision Making 06/29/18 07:25 38 yo M who presented overnight due to alcohol intoxication pt has been aggressive to staff Pt refusing leave the ER as he would like to go to [place] [facility] I have contacted [facility] for transport to [place] [facility] Plan discussed with patient He is in agreement *DC/Admit/Observation/Transfer Diagnosis at time of Disposition: Alcohol intoxication Qualifiers: Complication of substance-induced condition: uncomplicated Qualified Code(s): F10.920 - Alcohol use, unspecified with intoxication, uncomplicated - Discharge Dispostion Disposition: HOME Condition at time of disposition: Stable Decision to Admit order: No - Referrals - Patient Instructions Printed Discharge Instructions: DI for Alcohol Abuse - Post Discharge Activity
== END 2018-06-29 07:20 | disposition home or self-care (01) ==
LOC: JER 03:21
DX: F10.920 Alcohol use, unspecified with intoxication, uncomplicated (principal); Z13.89 Encounter for screening for other disorder; F17.210 Nicotine dependence, cigarettes, uncomplicated
CPT/HCPCS: 99281-25

== ENCOUNTER 2018-06-29 23:53 | Emergency (ER) | payer OTHER ==
[2018-06-30 01:34] VITALS: BMI 23.7
--- NOTE | 2018-06-30 06:15 | PDOC ---
History of Present Illness <Mili Peralta - Last Filed: 06/30/18 06:32> - History of Present Illness Initial Comments: 06/30/18 06:32 The patient is a 38 year old male, with a significant past medical history of alcohol abuse, who presents to the emergency department with alcohol intoxication. The patient was at [facility] yesterday but was not admitted because he was intoxicated and admitted earlier in the month. He notes that he drinks a 12 pack of beer and a bottle of alcohol every day for the past 25 years. While in the ED, he requests detox. The patient is a poor historian due to his alcohol intoxication. He is ambulating in the ED requesting a chief inspector. He denies any suicidal or homicidal ideation. He denies trauma, recent fevers, chills, headache or dizziness. He denies any recent nausea, vomit, diarrhea or constipation. He denies any recent chest pain or shortness of breath. He denies any recent dysuria, frequency, urgency or hematuria. Allergies: NKA Past surgical history: None reported. Social History: Alcohol abuse. Denies drug use. 06/30/18 07:00 Pt signed out to day attending for reassessment, mgmt/dispo <Erickson Myles - Last Filed: 06/30/18 07:58> - General Chief Complaint: Alcohol intoxication Stated Complaint: INTOXICATION Time Seen by Provider: 06/30/18 06:15 Past History <Mili Peralta - Last Filed: 06/30/18 06:32> - Past Medical History Anemia: No Asthma: No Cancer: No Cardiac Disorders: No CVA: No COPD: No CHF: No Dementia: No Diabetes: No GI Disorders: No Disorders: No HTN: No Kidney Stones: No Liver Disease: No Seizures: No Thyroid Disease: No - Surgical History Abdominal Surgery: No Appendectomy: No Cardiac Surgery: No Cholecystectomy: No Lung Surgery: No Neurologic Surgery: No Orthopedic Surgery: No - Reproductive History Testicular Surgery: No - Suicide/Smoking/Psychosocial Hx Smoking History: Current every day smoker Have you smoked in the past 12 months: Yes Number of Cigarettes Smoked Daily: 20 Information on smoking cessation initiated: No 'Breaking Loose' booklet given: 06/24/18 Hx Alcohol Use: No Drug/Substance Use Hx: No Substance Use Type: Alcohol Hx Substance Use Treatment: Yes <Erickson Myles - Last Filed: 06/30/18 07:58> - Past Medical History Allergies/Adverse Reactions: Allergies Allergy/AdvReac Type Severity Reaction Status Date / Time No Known Allergies Allergy Verified 06/29/18 05:13 Home Medications: Ambulatory Orders Unobtainable 06/24/18 Review of Systems - Review of Systems Comments:: 06/30/18 06:54 GENERAL/CONSTITUTIONAL: Intoxicated. No fever or chills. No weakness. HEAD, EYES, EARS, NOSE AND THROAT: No change in vision. No ear pain or discharge. No sore throat. GASTROINTESTINAL: No nausea, vomiting, diarrhea or constipation. GENITOURINARY: No dysuria, frequency, or change in urination. CARDIOVASCULAR: No chest pain or shortness of breath. RESPIRATORY: No cough, wheezing, or hemoptysis. MUSCULOSKELETAL: No joint or muscle swelling or pain. No neck or back pain. SKIN: No rash NEUROLOGIC: No headache, vertigo, loss of consciousness, or change in strength/ sensation. ENDOCRINE: No increased thirst. No abnormal weight change. HEMATOLOGIC/LYMPHATIC: No anemia, easy bleeding, or history of blood clots. ALLERGIC/IMMUNOLOGIC: No hives or skin allergy. <Erickson Myles - Last Filed: 06/30/18 07:58> *Physical Exam - Vital Signs Last Vital Signs Temp Pulse Resp BP Pulse Ox 98.1 F 88 16 118/79 96 06/29/18 23:58 06/29/18 23:58 06/29/18 23:58 06/29/18 23:58 06/29/18 23:58 <Mili Peralta - Last Filed: 06/30/18 06:32> - Vital Signs Last Vital Signs Temp Pulse Resp BP Pulse Ox 98.1 F 88 16 118/79 96 06/29/18 23:58 06/29/18 23:58 06/29/18 23:58 06/29/18 23:58 06/29/18 23:58 - Physical Exam Comments: 06/30/18 06:54 GENERAL: Alcohol on breath. Awake, alert, and fully oriented, in no acute distress. Ambulating in ED with steady gait HEAD: No signs of trauma EYES: PERRLA, EOMI, sclera anicteric ENT: Auricles normal inspection, nares patent, oropharynx clear without exudates. Moist mucosa NECK: Normal ROM, supple, no lymphadenopathy, JVD, or masses LUNGS: Breath sounds equal, clear to auscultation bilaterally. No wheezes, and no crackles HEART: Regular rate and rhythm, normal S1 and S2, no murmurs, rubs or gallops ABDOMEN: Soft, nontender, normoactive bowel sounds. No guarding, no rebound. No masses EXTREMITIES: Normal range of motion, no edema. No clubbing or cyanosis. No cords , erythema, or tenderness BACK: No midline spinal tenderness in cervical/thoracic/lumbar region NEUROLOGICAL: Normal speech, cranial nerves intact, 5/5 strength in all 4 extremities, normal sensation to light touch in all 4 extremities, normal gait, normal tone SKIN: Warm, Dry, normal turgor, no rashes or lesions noted. <Erickson Myles - Last Filed: 06/30/18 07:58> Medical Decision Making - Medical Decision Making 06/30/18 06:54 38yo M hx etoh abuse presents to the ED with etoh abuse. Pt ambulating in ED with steady gait but still intoxicated. Will observe patient and reassess for clinical sobriety. <Erickson Myles - Last Filed: 06/30/18 07:58> *DC/Admit/Observation/Transfer - Attestations Scribe Attestion: 06/30/18 06:32 Documentation prepared by Mili Peralta, acting as medical office receptionist assistant for Erickson Myles MD. <Mili Peralta - Last Filed: 06/30/18 06:32>
[2018-06-30 08:00] VITALS: BP 104/74; PULSE 90; TEMP 98.2
--- NOTE | 2018-06-30 09:09 | PDOC ---
*Physical Exam - Vital Signs Last Vital Signs Temp Pulse Resp BP Pulse Ox 98.2 F 90 19 104/74 95 06/30/18 07:59 06/30/18 07:59 06/30/18 07:59 06/30/18 07:59 06/30/18 07:59 Medical Decision Making - Medical Decision Making 06/30/18 09:07 signed out pending sobriety. 38 year old male, with a significant past medical history of alcohol abuse, DDx. alcohol intoxication, alcohol withdrawal. drug intoxication pt monitored closely in the ED, sobriety hold. remained comfortable, no acute events, VS remain stable. at time of discharge, clinically improved, sober, speech clear, gait stable. no acute neuro changes, normal mental status. no evidence of SI or HI or psychosis. discharge in stable condition. offered detox and resources for ETOH abuse. prompt follow up encouraged. *DC/Admit/Observation/Transfer Diagnosis at time of Disposition: Alcohol intoxication - Discharge Dispostion Disposition: HOME Condition at time of disposition: Good Decision to Admit order: No - Referrals Referrals: [facility] [Provider Group] Surekha Figueroa MD [Staff Physician] - - Patient Instructions Printed Discharge Instructions: DI for Alcohol Abuse Additional Instructions: you were evaluated in the department for alcohol intoxication follow up with the detox center for your alcohol use. prompt followup encouraged, resources provided. - Post Discharge Activity
== END 2018-06-30 10:07 | disposition home or self-care (01) ==
LOC: JER 23:53
DX: F10.120 Alcohol abuse with intoxication, uncomplicated (principal); F17.210 Nicotine dependence, cigarettes, uncomplicated
CPT/HCPCS: 99282-25

== ENCOUNTER 2019-02-06 12:43 | Inpatient (IN) | payer OTHER ==
[2019-02-06 14:14] VITALS: BMI 25.1
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
[2019-02-06] MEDS ORDERED: chlordiazePOXIDE HCL 25 MG CAPSULE PO PRN (15:25)
[2019-02-06] MEDS ORDERED: NICOTINE POLACRILEX 2 MG GUM BUC PRN (15:26)
[2019-02-06] MEDS ORDERED: MENTHOL/PHENOL 1 EACH UD MM PRN (15:26)
[2019-02-06] MEDS ORDERED: ACETAMINOPHEN 325 MG TABLET (FP) PO PRN (15:26)
[2019-02-06] MEDS ORDERED: MAG HYDROX/AL HYDROX/SIMETH 30 ML UNIT-DOSE CUP PO PRN (15:26)
[2019-02-06] MEDS ORDERED: MELATONIN 5 MG TABLETS PO PRN (15:26)
[2019-02-06] MEDS ORDERED: IBUPROFEN 400 MG TABLET (FP) PO PRN (15:26)
[2019-02-06] MEDS ORDERED: MAGNESIUM CITRATE 300 ML BOTTLE PO PRN (15:26)
[2019-02-06] MEDS ORDERED: BISMUTH SUBSALICYLATE 524 MG/30 ML UD PO PRN (15:26)
[2019-02-06] MEDS ORDERED: hydrOXYzine PAMOATE 25 MG CAPSULE (FP) PO PRN (15:26)
[2019-02-06] MEDS ORDERED: MAGNESIUM HYDROX 2400MG/30ML ORAL SUSPENSION 30 ML CUP PO PRN (15:26)
[2019-02-06] MEDS: chlordiazePOXIDE HCL 25 MG CAPSULE PO SCH ×2 (18:39→22:05)
[2019-02-06] MEDS: THIAMINE HCL 100 MG TABLET (FP) PO SCH (22:04)
[2019-02-07 01:52] LABS: URINE APPEARANCE CLOUDY; URINE BILIRUBIN NEGATIVE (NEGATIVE); URINE COLOR YELLOW; URINE GLUCOSE (UA) NEGATIVE (NEGATIVE); URINE KETONE NEGATIVE (NEGATIVE); URINE LEUK ESTERASE NEGATIVE (NEGATIVE); URINE NITRITE NEGATIVE (NEGATIVE); URINE PROTEIN 2+ (NEGATIVE); URINE UROBILINOGEN 0.2 mg/dL (0.2-1.0)
[2019-02-07 02:06] LABS: EPI CELLS NONE SEEN /HPF (0-5/HPF); URINE BACTERIA NONE SEEN /hpf (NEGATIVE); URINE CASTS NONE SEEN /lpf (0-8); URINE RBC NONE SEEN /hpf (0-4); URINE WBC NONE SEEN /hpf (0-5)
[2019-02-07] MEDS: chlordiazePOXIDE HCL 25 MG CAPSULE PO SCH ×4 (06:07→22:23)
[2019-02-07 09:51] LABS: ALK PHOS 64 U/L (45-117); ANION GAP 7 MMOL/L (8-16); BILIRUBIN,TOTAL 1.3 mg/dL (0.2-1); BLOOD UREA NITROGEN 9 mg/dL (7-18); CALCIUM 9.1 mg/dL (8.5-10.1); CHLORIDE 97 mmol/L (98-107); CO2 30 mmol/L (21-32); CREATININE 1.1 mg/dL (0.55-1.3); GLUCOSE,RANDOM 77 mg/dL (74-106); POTASSIUM 3.7 mmol/L (3.5-5.1); SGOT/AST 38 U/L (15-37); SGPT/ALT 38 U/L (13-61); SODIUM 135 mmol/L (136-145); TOT PROT 8.5 g/dl (6.4-8.2)
[2019-02-07 09:53] LABS: HEMATOCRIT 35.9 % (35.4-49); HEMOGLOBIN 11.5 GM/dL (11.7-16.9); MCH 24.1 pg (25.7-33.7); MCHC 32.2 g/dl (32.0-35.9); MEAN CELL VOLUME 74.8 fl (80-96); MEAN PLT VOLUME 8.9 fl (7.5-11.1); PLATELET COUNT 133 K/MM3 (134-434); RBC 4.79 M/mm3 (4.00-5.60); RDW 14.8 % (11.9-15.9); WHITE BLOOD COUNT 4.1 K/mm3 (4.0-10.0)
[2019-02-07] MEDS: PRENATAL VITAMINS W/ FOLIC ACID TABLET (FP) PO SCH (10:16)
[2019-02-07] MEDS: NICOTINE 21 MG/24 HOURS TOPICAL PATCH TD SCH (10:16)
--- NOTE | 2019-02-07 14:58 | PN ---
S CIWA - CIWA Score Nausea/Vomitin-No Nausea/No Vomiting Muscle Tremors: 3 Anxiety: 3 Agitation: 1-Slight > Activity Paroxysmal Sweats: 3 Orientation: 0-Oriented Tacttile Disturbances: 0-None Auditory Disturbances: 2-Mild Harshness/Frighten Visual Disturbances: 2-Mild Sensitivity Headache: 0-None Present CIWA-Ar Total Score: 14 BHS Progress Note (SOAP) Subjective: Body Aches, Muscle Spasms, Tremors, Sweating. Objective: PATIENT A & O X 3, OBSERVED AMBULATING ON UNIT UNASSISTED. IN NO ACUTE DISTRESS. 02/07/19 14:56 Vital Signs Temperature 97.8 F 02/07/19 10:22 Pulse Rate 100 H 02/07/19 13:30 Respiratory Rate 18 02/07/19 13:30 Blood Pressure 133/76 02/07/19 13:25 O2 Sat by Pulse Oximetry (%) Laboratory Tests 02/06/19 02/07/19 02/07/19 16:08 07:00 07:00 WBC 4.1 RBC 4.79 Hgb 11.5 L Hct 35.9 MCV 74.8 L MCH 24.1 L MCHC 32.2 RDW 14.8 Plt Count 133 L D MPV 8.9 Sodium 135 L Potassium 3.7 Chloride 97 L Carbon Dioxide 30 Anion Gap 7 L BUN 9 Creatinine 1.1 Creat Clearance w eGFR 74.52 Random Glucose 77 Calcium 9.1 Total Bilirubin 1.3 H AST 38 H ALT 38 Alkaline Phosphatase 64 Total Protein 8.5 H Albumin 4.0 Urine Color Yellow Urine Appearance Cloudy Urine pH 5.0 Ur Specific [place] 1.018 Urine Protein 2+ H Urine Glucose (UA) Negative Urine Ketones Negative Urine Blood 1+ H Urine Nitrite Negative Urine Bilirubin Negative Urine Urobilinogen 0.2 Ur Leukocyte Esterase Negative Urine WBC (Auto) None seen Urine RBC (Auto) None seen Urine Casts (Auto) None seen U Epithel Cells (Auto) None seen Urine Bacteria (Auto) None seen RPR Titer HIV 1&2 Antibody Screen HIV P24 Antigen 02/07/19 02/07/19 07:00 07:00 WBC RBC Hgb Hct MCV MCH MCHC RDW Plt Count MPV Sodium Potassium Chloride Carbon Dioxide Anion Gap BUN Creatinine Creat Clearance w eGFR Random Glucose Calcium Total Bilirubin AST ALT Alkaline Phosphatase Total Protein Albumin Urine Color Urine Appearance Urine pH Ur Specific [place] Urine Protein Urine Glucose (UA) Urine Ketones Urine Blood Urine Nitrite Urine Bilirubin Urine Urobilinogen Ur Leukocyte Esterase Urine WBC (Auto) Urine RBC (Auto) Urine Casts (Auto) U Epithel Cells (Auto) Urine Bacteria (Auto) RPR Titer Nonreactive HIV 1&2 Antibody Screen Negative HIV P24 Antigen Negative LABS NOTED. Assessment: 02/07/19 14:57 WITHDRAWAL SYMPTOMS. THROMBOCYTOPENIA. Plan: CONTINUE DETOX. PRN BACLOFEN PO FOR BODY ACHES / MUSCLE SPASMS.
[2019-02-07] MEDS: BACLOFEN 10 MG TABLET (FP) PO PRN ×2 (16:59→22:23)
[2019-02-07] MEDS: THIAMINE HCL 100 MG TABLET (FP) PO SCH (23:09)
[2019-02-08] MEDS: chlordiazePOXIDE HCL 25 MG CAPSULE PO SCH ×2 (06:28→10:36)
[2019-02-08] MEDS: PRENATAL VITAMINS W/ FOLIC ACID TABLET (FP) PO SCH (10:35)
[2019-02-08] MEDS: NICOTINE 21 MG/24 HOURS TOPICAL PATCH TD SCH (10:36)
[2019-02-08] MEDS: NAPROXEN 500 MG TABLET (FP) PO PRN (10:38)
--- NOTE | 2019-02-08 14:15 | PN ---
S CIWA - CIWA Score Nausea/Vomitin-No Nausea/No Vomiting Muscle Tremors: None Anxiety: 3 Agitation: 1-Slight > Activity Paroxysmal Sweats: 1-Minimal Palms Moist Orientation: 0-Oriented Tacttile Disturbances: 1-Very Mild Itch/Numbness Auditory Disturbances: 0-None Visual Disturbances: 2-Mild Sensitivity Headache: 0-None Present CIWA-Ar Total Score: 8 BHS Progress Note (SOAP) Subjective: Body Aches, Anxious. Objective: PATIENT A & O X 3, OBSERVED AMBULATING ON UNIT UNASSISTED. IN NO ACUTE DISTRESS. 02/08/19 14:13 Vital Signs Temperature 99.0 F 02/08/19 13:03 Pulse Rate 86 02/08/19 13:03 Respiratory Rate 18 02/08/19 13:03 Blood Pressure 101/55 L 02/08/19 13:03 O2 Sat by Pulse Oximetry (%) Laboratory Tests 02/06/19 02/07/19 02/07/19 16:08 07:00 07:00 WBC 4.1 RBC 4.79 Hgb 11.5 L Hct 35.9 MCV 74.8 L MCH 24.1 L MCHC 32.2 RDW 14.8 Plt Count 133 L D MPV 8.9 Sodium 135 L Potassium 3.7 Chloride 97 L Carbon Dioxide 30 Anion Gap 7 L BUN 9 Creatinine 1.1 Creat Clearance w eGFR 74.52 Random Glucose 77 Calcium 9.1 Total Bilirubin 1.3 H AST 38 H ALT 38 Alkaline Phosphatase 64 Total Protein 8.5 H Albumin 4.0 Urine Color Yellow Urine Appearance Cloudy Urine pH 5.0 Ur Specific [place] 1.018 Urine Protein 2+ H Urine Glucose (UA) Negative Urine Ketones Negative Urine Blood 1+ H Urine Nitrite Negative Urine Bilirubin Negative Urine Urobilinogen 0.2 Ur Leukocyte Esterase Negative Urine WBC (Auto) None seen Urine RBC (Auto) None seen Urine Casts (Auto) None seen U Epithel Cells (Auto) None seen Urine Bacteria (Auto) None seen RPR Titer HIV 1&2 Antibody Screen HIV P24 Antigen 02/07/19 02/07/19 07:00 07:00 WBC RBC Hgb Hct MCV MCH MCHC RDW Plt Count MPV Sodium Potassium Chloride Carbon Dioxide Anion Gap BUN Creatinine Creat Clearance w eGFR Random Glucose Calcium Total Bilirubin AST ALT Alkaline Phosphatase Total Protein Albumin Urine Color Urine Appearance Urine pH Ur Specific [place] Urine Protein Urine Glucose (UA) Urine Ketones Urine Blood Urine Nitrite Urine Bilirubin Urine Urobilinogen Ur Leukocyte Esterase Urine WBC (Auto) Urine RBC (Auto) Urine Casts (Auto) U Epithel Cells (Auto) Urine Bacteria (Auto) RPR Titer Nonreactive HIV 1&2 Antibody Screen Negative HIV P24 Antigen Negative LABS NOTED. Assessment: 02/08/19 14:14 WITHDRAWAL SYMPTOMS. THROMBOCYROPENIA. 02/08/19 14:14 Plan: CONTINUE DETOX. PRN NAPROXEN PO FOR BODY ACHES (PATIENT ALSO REPORTS HISTORY OF CHRONIC INJURY IN LOWER BACK AND LEGS).
[2019-02-08] MEDS ORDERED: chlordiazePOXIDE HCL 10 MG CAPSULE PO PRN (17:00)
[2019-02-08] MEDS: chlordiazePOXIDE HCL 10 MG CAPSULE PO SCH ×2 (17:29→23:07)
--- NOTE | 2019-02-08 21:48 | PN ---
[facility] Progress Note Note: Patient w/ multiple complaints. Refuses to let this provider do a physical assessment. Pacing floor. Gait steady. Respirations unlabored. Requesting names for Nursing, Counseling, and Medical supervisors, as well as phone number for [facility]. Information provided to patient by nurse. Vital Signs 02/08/19 02/08/19 17:08 21:34 Temperature 98.2 F 99.9 F H Pulse Rate 69 75 Respiratory 18 18 Rate Blood Pressure 140/93 120/50 L Laboratory Last Values WBC 4.1 K/mm3 (4.0-10.0) 02/07/19 07:00 RBC 4.79 M/mm3 (4.00-5.60) 02/07/19 07:00 Hgb 11.5 GM/dL (11.7-16.9) L 02/07/19 07:00 Hct 35.9 % (35.4-49) 02/07/19 07:00 MCV 74.8 fl (80-96) L 02/07/19 07:00 MCH 24.1 pg (25.7-33.7) L 02/07/19 07:00 MCHC 32.2 g/dl (32.0-35.9) 02/07/19 07:00 RDW 14.8 % (11.9-15.9) 02/07/19 07:00 Plt Count 133 K/MM3 (134-434) L D 02/07/19 07:00 MPV 8.9 fl (7.5-11.1) 02/07/19 07:00 Sodium 135 mmol/L (136-145) L 02/07/19 07:00 Potassium 3.7 mmol/L (3.5-5.1) 02/07/19 07:00 Chloride 97 mmol/L (98-107) L 02/07/19 07:00 Carbon Dioxide 30 mmol/L (21-32) 02/07/19 07:00 Anion Gap 7 MMOL/L (8-16) L 02/07/19 07:00 BUN 9 mg/dL (7-18) 02/07/19 07:00 Creatinine 1.1 mg/dL (0.55-1.3) 02/07/19 07:00 Creat Clearance w eGFR 74.52 (>60) 02/07/19 07:00 Random Glucose 77 mg/dL (74-106) 02/07/19 07:00 Calcium 9.1 mg/dL (8.5-10.1) 02/07/19 07:00 Total Bilirubin 1.3 mg/dL (0.2-1) H 02/07/19 07:00 AST 38 U/L (15-37) H 02/07/19 07:00 ALT 38 U/L (13-61) 02/07/19 07:00 Alkaline Phosphatase 64 U/L (45-117) 02/07/19 07:00 Total Protein 8.5 g/dl (6.4-8.2) H 02/07/19 07:00 Albumin 4.0 g/dl (3.4-5.0) 02/07/19 07:00 Urine Color Yellow 02/06/19 16:08 Urine Appearance Cloudy 02/06/19 16:08 Urine pH 5.0 (5.0-8.0) 02/06/19 16:08 Ur Specific [place] 1.018 (1.010-1.035) 02/06/19 16:08 Urine Protein 2+ (NEGATIVE) H 02/06/19 16:08 Urine Glucose (UA) Negative (NEGATIVE) 02/06/19 16:08 Urine Ketones Negative (NEGATIVE) 02/06/19 16:08 Urine Blood 1+ (NEGATIVE) H 02/06/19 16:08 Urine Nitrite Negative (NEGATIVE) 02/06/19 16:08 Urine Bilirubin Negative (NEGATIVE) 02/06/19 16:08 Urine Urobilinogen 0.2 mg/dL (0.2-1.0) 02/06/19 16:08 Ur Leukocyte Esterase Negative (NEGATIVE) 02/06/19 16:08 Urine WBC (Auto) None seen /hpf (0-5) 02/06/19 16:08 Urine RBC (Auto) None seen /hpf (0-4) 02/06/19 16:08 Urine Casts (Auto) None seen /lpf (0-8) 02/06/19 16:08 U Epithel Cells (Auto) None seen /HPF (0-5/HPF) 02/06/19 16:08 Urine Bacteria (Auto) None seen /hpf (NEGATIVE) 02/06/19 16:08 RPR Titer Nonreactive (NONREACTIVE) 02/07/19 07:00 HIV 1&2 Antibody Screen Negative 02/07/19 07:00 HIV P24 Antigen Negative 02/07/19 07:00 Labs reviewed.
[2019-02-08] MEDS: THIAMINE HCL 100 MG TABLET (FP) PO SCH (23:07)
[2019-02-09] MEDS: chlordiazePOXIDE HCL 10 MG CAPSULE PO SCH ×3 (05:52→18:41)
[2019-02-09] MEDS: NAPROXEN 500 MG TABLET (FP) PO PRN ×2 (06:39→22:24)
[2019-02-09] MEDS: PRENATAL VITAMINS W/ FOLIC ACID TABLET (FP) PO SCH (10:21)
[2019-02-09] MEDS: NICOTINE 21 MG/24 HOURS TOPICAL PATCH TD SCH (10:22)
[2019-02-09] MEDS: BACLOFEN 10 MG TABLET (FP) PO PRN ×2 (10:24→22:21)
--- NOTE | 2019-02-09 12:27 | PN ---
S CIWA - CIWA Score Nausea/Vomitin-No Nausea/No Vomiting Muscle Tremors: None Anxiety: 4-Mod. Anxious/Guarded Agitation: 3 Paroxysmal Sweats: No Perspiration Orientation: 0-Oriented Tacttile Disturbances: 1-Very Mild Itch/Numbness Auditory Disturbances: 0-None Visual Disturbances: 0-None Headache: 0-None Present CIWA-Ar Total Score: 8 BHS Progress Note (SOAP) Subjective: Anxious, Body Aches (Patient also Reports History Of Chronic Musculoskeletal Disorder affecting Lower Back and Legs). Objective: PATIENT A & O X 3, OBSERVED AMBULATING ON UNIT UNASSISTED. IN NO ACUTE DISTRESS. 02/09/19 12:24 Vital Signs Temperature 98.6 F 02/09/19 10:00 Pulse Rate 84 02/09/19 10:00 Respiratory Rate 18 02/09/19 10:00 Blood Pressure 126/76 02/09/19 10:00 O2 Sat by Pulse Oximetry (%) Laboratory Tests 02/06/19 02/07/19 02/07/19 16:08 07:00 07:00 WBC 4.1 RBC 4.79 Hgb 11.5 L Hct 35.9 MCV 74.8 L MCH 24.1 L MCHC 32.2 RDW 14.8 Plt Count 133 L D MPV 8.9 Sodium 135 L Potassium 3.7 Chloride 97 L Carbon Dioxide 30 Anion Gap 7 L BUN 9 Creatinine 1.1 Creat Clearance w eGFR 74.52 Random Glucose 77 Calcium 9.1 Total Bilirubin 1.3 H AST 38 H ALT 38 Alkaline Phosphatase 64 Total Protein 8.5 H Albumin 4.0 Urine Color Yellow Urine Appearance Cloudy Urine pH 5.0 Ur Specific [place] 1.018 Urine Protein 2+ H Urine Glucose (UA) Negative Urine Ketones Negative Urine Blood 1+ H Urine Nitrite Negative Urine Bilirubin Negative Urine Urobilinogen 0.2 Ur Leukocyte Esterase Negative Urine WBC (Auto) None seen Urine RBC (Auto) None seen Urine Casts (Auto) None seen U Epithel Cells (Auto) None seen Urine Bacteria (Auto) None seen RPR Titer HIV 1&2 Antibody Screen HIV P24 Antigen 02/07/19 02/07/19 07:00 07:00 WBC RBC Hgb Hct MCV MCH MCHC RDW Plt Count MPV Sodium Potassium Chloride Carbon Dioxide Anion Gap BUN Creatinine Creat Clearance w eGFR Random Glucose Calcium Total Bilirubin AST ALT Alkaline Phosphatase Total Protein Albumin Urine Color Urine Appearance Urine pH Ur Specific [place] Urine Protein Urine Glucose (UA) Urine Ketones Urine Blood Urine Nitrite Urine Bilirubin Urine Urobilinogen Ur Leukocyte Esterase Urine WBC (Auto) Urine RBC (Auto) Urine Casts (Auto) U Epithel Cells (Auto) Urine Bacteria (Auto) RPR Titer Nonreactive HIV 1&2 Antibody Screen Negative HIV P24 Antigen Negative LABS NOTED. Assessment: 02/09/19 12:24 WITHDRAWAL SYMPTOMS. THROMBOCYTOPENIA. 02/09/19 12:25 Plan: CONTINUE DETOX. INCREASE DAILY PO FLUID / WATER INTAKE. PRN BACLOFEN PO, PRN NAROXEN PO FOR BODY ACHES / MUSCLE SPASMS.
[2019-02-09] MEDS: THIAMINE HCL 100 MG TABLET (FP) PO SCH (22:22)
[2019-02-10] MEDS: chlordiazePOXIDE HCL 10 MG CAPSULE PO SCH (06:44)
[2019-02-10 06:47] VITALS: BP 96/63; PULSE 60; TEMP 97
--- NOTE | 2019-02-10 18:32 | PN ---
S CIWA - CIWA Score Nausea/Vomitin-No Nausea/No Vomiting Muscle Tremors: None Anxiety: 2 Agitation: 1-Slight > Activity Paroxysmal Sweats: No Perspiration Orientation: 0-Oriented Tacttile Disturbances: 0-None Auditory Disturbances: 0-None Visual Disturbances: 0-None Headache: 0-None Present CIWA-Ar Total Score: 3 BHS Progress Note (SOAP) Subjective: Anxious (Mild). Objective: PATIENT A & O X 3, OBSERVED AMBULATING ON UNIT UNASSISTED. IN NO ACUTE DISTRESS. 02/10/19 18:30 Vital Signs Temperature 97 F L 02/10/19 06:46 Pulse Rate 60 02/10/19 06:46 Respiratory Rate 16 02/10/19 06:46 Blood Pressure 96/63 02/10/19 06:46 O2 Sat by Pulse Oximetry (%) Laboratory Tests 02/06/19 02/07/19 02/07/19 16:08 07:00 07:00 WBC 4.1 RBC 4.79 Hgb 11.5 L Hct 35.9 MCV 74.8 L MCH 24.1 L MCHC 32.2 RDW 14.8 Plt Count 133 L D MPV 8.9 Sodium 135 L Potassium 3.7 Chloride 97 L Carbon Dioxide 30 Anion Gap 7 L BUN 9 Creatinine 1.1 Creat Clearance w eGFR 74.52 Random Glucose 77 Calcium 9.1 Total Bilirubin 1.3 H AST 38 H ALT 38 Alkaline Phosphatase 64 Total Protein 8.5 H Albumin 4.0 Urine Color Yellow Urine Appearance Cloudy Urine pH 5.0 Ur Specific [place] 1.018 Urine Protein 2+ H Urine Glucose (UA) Negative Urine Ketones Negative Urine Blood 1+ H Urine Nitrite Negative Urine Bilirubin Negative Urine Urobilinogen 0.2 Ur Leukocyte Esterase Negative Urine WBC (Auto) None seen Urine RBC (Auto) None seen Urine Casts (Auto) None seen U Epithel Cells (Auto) None seen Urine Bacteria (Auto) None seen RPR Titer HIV 1&2 Antibody Screen HIV P24 Antigen 02/07/19 02/07/19 07:00 07:00 WBC RBC Hgb Hct MCV MCH MCHC RDW Plt Count MPV Sodium Potassium Chloride Carbon Dioxide Anion Gap BUN Creatinine Creat Clearance w eGFR Random Glucose Calcium Total Bilirubin AST ALT Alkaline Phosphatase Total Protein Albumin Urine Color Urine Appearance Urine pH Ur Specific [place] Urine Protein Urine Glucose (UA) Urine Ketones Urine Blood Urine Nitrite Urine Bilirubin Urine Urobilinogen Ur Leukocyte Esterase Urine WBC (Auto) Urine RBC (Auto) Urine Casts (Auto) U Epithel Cells (Auto) Urine Bacteria (Auto) RPR Titer Nonreactive HIV 1&2 Antibody Screen Negative HIV P24 Antigen Negative LABS NOTED. Assessment: 02/10/19 18:30 COMPLETION OF DETOX REGIMEN. Plan: PATIENT REPORTS THAT CURRENT WITHDRAWAL SYMPTOMS IS VERY MILD IN DEGREE AND THAT HE FEELS WELL AT THIS TIME, AT HIS REQUEST, HE WAS DISCHARGED FROM DETOX UNIT TODAY. PATIENT WILL RETURN HOME FOR TODAY, AND THEN WILL APPLY FOR ADMISSION ON HIS OWN TO [facility] ([place], [place]) TOMORROW.
--- NOTE | 2019-02-10 18:36 | DS ---
[facility] Detox Discharge Summary Admission Date: 02/06/19 Discharge Date: 02/10/19 - History Present History: Alcohol Dependence Additional Comments: PATIENT REPORTS THAT CURRENT WITHDRAWAL / DETOX SYMPTOMS ARE MINIMAL IN DEGREE AND THAT HE FEELS WELL OVERALL AT TIME OF DISCHARGE FROM DETOX UNIT. PATIENT RETURNING HOME FOR TODAY TO ATTEND TO PERSONAL MATTER, THEN WILL APPLY ON HIS TO [facility] ([place], [place]) TOMORROW. PATIENT WAS DISCHARGED FROM DETOX UNIT IN STABLE MEDICAL CONDITION. Pertinent Past History: Depression, Nicotine Dependence, Thrombocytopenia. - Physical Exam Results Vital Signs: Vital Signs Temperature 97 F L 02/10/19 06:46 Pulse Rate 60 02/10/19 06:46 Respiratory Rate 16 02/10/19 06:46 Blood Pressure 96/63 02/10/19 06:46 O2 Sat by Pulse Oximetry (%) Pertinent Admission Physical Exam Findings: WITHDRAWAL SYMPTOMS. Laboratory Tests 02/06/19 02/07/19 02/07/19 16:08 07:00 07:00 WBC 4.1 RBC 4.79 Hgb 11.5 L Hct 35.9 MCV 74.8 L MCH 24.1 L MCHC 32.2 RDW 14.8 Plt Count 133 L D MPV 8.9 Sodium 135 L Potassium 3.7 Chloride 97 L Carbon Dioxide 30 Anion Gap 7 L BUN 9 Creatinine 1.1 Creat Clearance w eGFR 74.52 Random Glucose 77 Calcium 9.1 Total Bilirubin 1.3 H AST 38 H ALT 38 Alkaline Phosphatase 64 Total Protein 8.5 H Albumin 4.0 Urine Color Yellow Urine Appearance Cloudy Urine pH 5.0 Ur Specific [place] 1.018 Urine Protein 2+ H Urine Glucose (UA) Negative Urine Ketones Negative Urine Blood 1+ H Urine Nitrite Negative Urine Bilirubin Negative Urine Urobilinogen 0.2 Ur Leukocyte Esterase Negative Urine WBC (Auto) None seen Urine RBC (Auto) None seen Urine Casts (Auto) None seen U Epithel Cells (Auto) None seen Urine Bacteria (Auto) None seen RPR Titer HIV 1&2 Antibody Screen HIV P24 Antigen 02/07/19 02/07/19 07:00 07:00 WBC RBC Hgb Hct MCV MCH MCHC RDW Plt Count MPV Sodium Potassium Chloride Carbon Dioxide Anion Gap BUN Creatinine Creat Clearance w eGFR Random Glucose Calcium Total Bilirubin AST ALT Alkaline Phosphatase Total Protein Albumin Urine Color Urine Appearance Urine pH Ur Specific [place] Urine Protein Urine Glucose (UA) Urine Ketones Urine Blood Urine Nitrite Urine Bilirubin Urine Urobilinogen Ur Leukocyte Esterase Urine WBC (Auto) Urine RBC (Auto) Urine Casts (Auto) U Epithel Cells (Auto) Urine Bacteria (Auto) RPR Titer Nonreactive HIV 1&2 Antibody Screen Negative HIV P24 Antigen Negative LABS NOTED. - Treatment Hospital Course: Detox Protocol Followed, Detoxed Safely, Responded well, Discharged Condition Good, Rehab Referral Accepted Patient has Accepted a Rehab Referral to: [facility] ([place], [place]). - Medication Discharge Medications: Ambulatory Orders NK [No Known Home Medication] 02/06/19 - Diagnosis (1) Alcohol dependence with uncomplicated withdrawal Status: Acute (2) Thrombocytopenia Status: Acute (3) Nicotine dependence Status: Chronic Qualifiers: Nicotine product type: cigarettes Substance use status: uncomplicated Qualified Code(s): F17.210 - Nicotine dependence, cigarettes, uncomplicated - AMA Did Patient Leave Against Medical Advice: No
== END 2019-02-10 10:50 | disposition home or self-care (01) | DRG 775 ==
LOC: YASAS 12:43 → Y6N 15:54
PROVIDERS: ADMIT Surgery; ATTEND Surgery
PROC: HZ2ZZZZ Detoxification Services for Substance Abuse Treatment (ICD-10-PCS; principal; 2019-02-06)
DX: F10.230 Alcohol dependence with withdrawal, uncomplicated (principal); F17.210 Nicotine dependence, cigarettes, uncomplicated; F32.9 Major depressive disorder, single episode, unspecified; D69.6 Thrombocytopenia, unspecified; G47.00 Insomnia, unspecified
CPT/HCPCS: 36415; 80053; 81003; 85027; 86593; 87389; J0475

== ENCOUNTER 2021-01-17 15:33 | Inpatient (IN) | payer OTHER ==
[2021-01-17 16:53] VITALS: BMI 22.3
[2021-01-17] MEDS ORDERED: chlordiazePOXIDE HCL 25 MG CAPSULE PO ONE (16:56)
[2021-01-17] MEDS ORDERED: MAGNESIUM HYDROX 2400MG/30ML ORAL SUSPENSION 30 ML CUP PO PRN (16:56)
[2021-01-17] MEDS ORDERED: ONDANSETRON *ODT* 4 MG TABLET SL PRN (16:56)
[2021-01-17] MEDS ORDERED: MENTHOL/PHENOL 1 EACH UD MM PRN (16:56)
[2021-01-17] MEDS ORDERED: chlordiazePOXIDE HCL 25 MG CAPSULE PO PRN (16:56)
[2021-01-17] MEDS ORDERED: IBUPROFEN 400 MG TABLET (FP) PO PRN (16:56)
[2021-01-17] MEDS ORDERED: METHOCARBAMOL 500 MG TABLET PO PRN (16:56)
[2021-01-17] MEDS ORDERED: MAG HYDROX/AL HYDROX/SIMETH 30 ML UNIT-DOSE CUP PO PRN (16:56)
[2021-01-17] MEDS ORDERED: NICOTINE POLACRILEX 2 MG GUM BUC PRN (16:56)
[2021-01-17] MEDS ORDERED: ACETAMINOPHEN 325 MG TABLET (FP) PO PRN ×2 (16:56)
[2021-01-17] MEDS ORDERED: MAGNESIUM CITRATE 300 ML BOTTLE PO PRN (16:56)
[2021-01-17] MEDS ORDERED: BISMUTH SUBSALICYLATE 524 MG/30 ML UD PO PRN (16:56)
[2021-01-17] MEDS ORDERED: chlordiazePOXIDE HCL 25 MG CAPSULE ONE (18:09)
[2021-01-17] MEDS: hydrOXYzine PAMOATE 25 MG CAPSULE (FP) PO SCH ×2 (18:55→22:10)
[2021-01-17] MEDS ORDERED: MELATONIN 5 MG TABLETS PO SCH (22:00)
[2021-01-17] MEDS: THIAMINE HCL 100 MG TABLET (FP) PO SCH (22:10)
[2021-01-17] MEDS: chlordiazePOXIDE HCL 25 MG CAPSULE PO SCH (22:10)
[2021-01-18] MEDS: chlordiazePOXIDE HCL 25 MG CAPSULE PO SCH ×4 (05:39→22:00)
[2021-01-18] MEDS: hydrOXYzine PAMOATE 25 MG CAPSULE (FP) PO SCH ×5 (05:40→21:58)
[2021-01-18] MEDS: PRENATAL VITAMINS W/ FOLIC ACID TABLET (FP) PO SCH (10:21)
[2021-01-18] MEDS: NICOTINE 14 MG/24 HOURS TOPICAL PATCH TD SCH (10:22)
[2021-01-18 13:50] LABS: HEMATOCRIT 32.9 % (35.4-49); HEMOGLOBIN 10.5 GM/dL (11.7-16.9); MCH 24.2 pg (25.7-33.7); MCHC 32.1 g/dl (32.0-35.9); MEAN CELL VOLUME 75.6 fl (80-96); MEAN PLT VOLUME 8.8 fl (7.5-11.1); PLATELET COUNT 142 K/MM3 (134-434); RBC 4.35 M/mm3 (4.00-5.60); RDW 14.9 % (11.9-15.9); WHITE BLOOD COUNT 2.9 K/mm3 (4.0-10.0)
[2021-01-18 13:59] LABS: BLOOD UREA NITROGEN 12.7 mg/dL (7-18)
[2021-01-18 14:01] LABS: ALBUMIN 3.5 g/dl (3.4-5.0)
[2021-01-18 14:02] LABS: TOT PROT 7.7 g/dl (6.4-8.2)
[2021-01-18 14:04] LABS: CREATININE 0.9 mg/dL (0.55-1.3)
[2021-01-18 14:05] LABS: BILIRUBIN,TOTAL 0.6 mg/dL (0.2-1)
[2021-01-18] MEDS: QUEtiapine FUMARATE 50 MG TABLET PO SCH (21:57)
[2021-01-18] MEDS: THIAMINE HCL 100 MG TABLET (FP) PO SCH (21:58)
[2021-01-18] MEDS: MELATONIN 5 MG TABLETS PO PRN (21:58)
[2021-01-18] MEDS: NORTRIPTYLINE HCL 10 MG CAPSULE PO SCH (22:17)
[2021-01-19] MEDS: chlordiazePOXIDE HCL 25 MG CAPSULE PO SCH ×4 (06:16→22:24)
[2021-01-19] MEDS: hydrOXYzine PAMOATE 25 MG CAPSULE (FP) PO SCH ×5 (06:16→22:25)
[2021-01-19] MEDS: PRENATAL VITAMINS W/ FOLIC ACID TABLET (FP) PO SCH (10:23)
[2021-01-19] MEDS: NICOTINE 14 MG/24 HOURS TOPICAL PATCH TD SCH (10:23)
[2021-01-19] MEDS: NORTRIPTYLINE HCL 10 MG CAPSULE PO SCH (22:25)
[2021-01-19] MEDS: QUEtiapine FUMARATE 50 MG TABLET PO SCH (22:25)
[2021-01-19] MEDS: THIAMINE HCL 100 MG TABLET (FP) PO SCH (22:25)
[2021-01-20] MEDS ORDERED: chlordiazePOXIDE HCL 10 MG CAPSULE PO PRN
[2021-01-20] MEDS: hydrOXYzine PAMOATE 25 MG CAPSULE (FP) PO SCH ×5 (06:15→22:01)
[2021-01-20] MEDS: chlordiazePOXIDE HCL 10 MG CAPSULE PO SCH ×4 (06:18→22:01)
[2021-01-20 10:06] LABS: SARS-CoV-2 NAA Not Detected (Not Detected)
[2021-01-20 11:39] LABS: BASO % 0.5 % (0-2.0); HEMATOCRIT 33.9 % (35.4-49); HEMOGLOBIN 10.7 GM/dL (11.7-16.9); LYMPH % 39.3 % (8-40); MCH 24.4 pg (25.7-33.7); MCHC 31.6 g/dl (32.0-35.9); MEAN CELL VOLUME 77.3 fl (80-96); MEAN PLT VOLUME 8.9 fl (7.5-11.1); MONO % 7.9 % (3.8-10.2); NEUT % 48.3 % (42.8-82.8); PLATELET COUNT 126 K/MM3 (134-434); RBC 4.39 M/mm3 (4.00-5.60); RDW 15.2 % (11.9-15.9); WHITE BLOOD COUNT 2.9 K/mm3 (4.0-10.0)
[2021-01-20] MEDS: NICOTINE 14 MG/24 HOURS TOPICAL PATCH TD SCH (12:21)
[2021-01-20] MEDS: PRENATAL VITAMINS W/ FOLIC ACID TABLET (FP) PO SCH (12:21)
[2021-01-20] MEDS ORDERED: QUEtiapine FUMARATE 50 MG TABLET PO ONE (14:45)
[2021-01-20 18:17] LABS: HIV INTERPRETATION NEGATIVE (NEGATIVE)
[2021-01-20] MEDS ORDERED: QUEtiapine FUMARATE 50 MG TABLET PO SCH (22:00)
[2021-01-20] MEDS: THIAMINE HCL 100 MG TABLET (FP) PO SCH (22:01)
[2021-01-20] MEDS: NORTRIPTYLINE HCL 10 MG CAPSULE PO SCH (22:02)
[2021-01-21] MEDS: chlordiazePOXIDE HCL 10 MG CAPSULE PO SCH ×3 (07:48→18:00)
[2021-01-21] MEDS: hydrOXYzine PAMOATE 25 MG CAPSULE (FP) PO SCH ×6 (07:49→22:19)
[2021-01-21] MEDS ORDERED: QUEtiapine FUMARATE 100 MG TABLET (FP) PO SCH (10:00)
[2021-01-21] MEDS: PRENATAL VITAMINS W/ FOLIC ACID TABLET (FP) PO SCH (10:32)
[2021-01-21] MEDS: NICOTINE 14 MG/24 HOURS TOPICAL PATCH TD SCH (10:34)
[2021-01-21] MEDS ORDERED: COLLOIDAL OATMEAL 1 BAR EACH TP PRN (11:39)
[2021-01-21] MEDS ORDERED: QUEtiapine FUMARATE 200 MG TABLET PO SCH (22:00)
[2021-01-21] MEDS: THIAMINE HCL 100 MG TABLET (FP) PO SCH (22:19)
[2021-01-21] MEDS: MELATONIN 5 MG TABLETS PO PRN (22:20)
[2021-01-22] MEDS ORDERED: chlordiazePOXIDE HCL 10 MG CAPSULE PO ONE (05:00)
[2021-01-22] MEDS: hydrOXYzine PAMOATE 25 MG CAPSULE (FP) PO SCH ×2 (07:19→10:04)
[2021-01-22 09:00] VITALS: BP 125/88; PULSE 109; TEMP 96.8
[2021-01-22] MEDS ORDERED: QUEtiapine FUMARATE 200 MG TABLET PO SCH (10:00)
[2021-01-22] MEDS: NICOTINE 14 MG/24 HOURS TOPICAL PATCH TD SCH (10:04)
[2021-01-22] MEDS: PRENATAL VITAMINS W/ FOLIC ACID TABLET (FP) PO SCH (10:04)
[2021-01-24 17:08] LABS: NORCLOZAPINE <20 ng/mL (Not Estab.)
== END 2021-01-22 09:54 | disposition other institution (70) | DRG 775 ==
LOC: YASAS 15:33 → UNDOADMIN 17:04 → Y3N 17:04
PROVIDERS: ADMIT Allergy & Immunology; ATTEND Allergy & Immunology
PROC: HZ2ZZZZ Detoxification Services for Substance Abuse Treatment (ICD-10-PCS; principal; 2021-01-17)
DX: F10.230 Alcohol dependence with withdrawal, uncomplicated (principal); F17.210 Nicotine dependence, cigarettes, uncomplicated; F10.282 Alcohol dependence with alcohol-induced sleep disorder; F10.24 Alcohol dependence with alcohol-induced mood disorder; F20.9 Schizophrenia, unspecified; F19.24 Other psychoactive substance dependence with psychoactive substance-induced mood disorder; F60.9 Personality disorder, unspecified; D69.6 Thrombocytopenia, unspecified; D64.9 Anemia, unspecified; D72.819 Decreased white blood cell count, unspecified; Z91.5 Personal history of self-harm; Z91.19 Patient's noncompliance with other medical treatment and regimen
CPT/HCPCS: 36415; 80053; 85025; 85027; 86780; 87389; 93005; 93010; C9803; G0480; U0003; U0005

== ENCOUNTER 2021-01-22 10:49 | Inpatient (IN) | payer OTHER ==
[2021-01-22] MEDS ORDERED: P-EPHED 60MG/TRIPROLIDI 2.5MG TABLET PO PRN (11:48)
[2021-01-22] MEDS ORDERED: MAGNESIUM CITRATE 300 ML BOTTLE PO PRN (11:48)
[2021-01-22] MEDS ORDERED: MENTHOL/PHENOL 1 EACH UD MM PRN (11:48)
[2021-01-22] MEDS ORDERED: IBUPROFEN 400 MG TABLET (FP) PO PRN (11:48)
[2021-01-22] MEDS ORDERED: MAG HYDROX/AL HYDROX/SIMETH 30 ML UNIT-DOSE CUP PO PRN (11:48)
[2021-01-22] MEDS ORDERED: LOPERAMIDE HCL 2 MG CAPSULE PO PRN (11:48)
[2021-01-22] MEDS ORDERED: ACETAMINOPHEN 325 MG TABLET (FP) PO PRN (11:48)
[2021-01-22] MEDS ORDERED: guaiFENesin 200 MG/10 ML 10 ML UNIT-DOSE CUPS PO PRN (11:48)
[2021-01-22] MEDS ORDERED: NICOTINE POLACRILEX 2 MG GUM BUC PRN (11:48)
[2021-01-22] MEDS ORDERED: MAGNESIUM HYDROX 2400MG/30ML ORAL SUSPENSION 30 ML CUP PO PRN (11:48)
[2021-01-22] MEDS ORDERED: AMMONIUM LACTATE 12% LOTION 225 GM BOTTLE TP PRN (11:51)
[2021-01-22] MEDS: METHOCARBAMOL 500 MG TABLET PO SCH ×3 (13:48→21:33)
[2021-01-22] MEDS: hydrOXYzine PAMOATE 25 MG CAPSULE (FP) PO PRN (13:49)
[2021-01-22] MEDS ORDERED: PT OWN MED DRAWER 7, Y5N ONE (21:30)
[2021-01-22] MEDS: QUEtiapine FUMARATE 200 MG TABLET PO SCH (21:33)
[2021-01-22] MEDS: THIAMINE HCL 100 MG TABLET (FP) PO SCH (21:33)
[2021-01-22] MEDS: MELATONIN 5 MG TABLETS PO SCH (21:33)
[2021-01-22] MEDS: NORTRIPTYLINE HCL 10 MG CAPSULE PO SCH (21:45)
[2021-01-23] MEDS: hydrOXYzine PAMOATE 25 MG CAPSULE (FP) PO PRN ×2 (02:38→07:27)
[2021-01-23] MEDS: PRENATAL VITAMINS W/ FOLIC ACID TABLET (FP) PO SCH (09:53)
[2021-01-23] MEDS: METHOCARBAMOL 500 MG TABLET PO SCH ×4 (09:53→21:01)
[2021-01-23] MEDS: NICOTINE 14 MG/24 HOURS TOPICAL PATCH TD SCH (09:53)
[2021-01-23] MEDS: QUEtiapine FUMARATE 200 MG TABLET PO SCH ×2 (09:54→21:01)
[2021-01-23] MEDS: hydrOXYzine PAMOATE 50 MG CAPSULE (FP) PO PRN ×2 (13:55→21:00)
[2021-01-23] MEDS ORDERED: PT OWN MED DRAWER 7, Y5N ONE ×3 (14:40→21:04)
[2021-01-23] MEDS: busPIRone HCL 5 MG TABLET PO SCH ×2 (14:52→21:01)
[2021-01-23] MEDS ORDERED: MASKS NR ONE (20:00)
[2021-01-23] MEDS: THIAMINE HCL 100 MG TABLET (FP) PO SCH (21:01)
[2021-01-23] MEDS: MELATONIN 5 MG TABLETS PO SCH (21:01)
[2021-01-23] MEDS: NORTRIPTYLINE HCL 10 MG CAPSULE PO SCH (21:04)
[2021-01-24] MEDS: ALBUTEROL SO4 HFA INHALER IH PRN ×2 (01:00→15:49)
[2021-01-24] MEDS: hydrOXYzine PAMOATE 50 MG CAPSULE (FP) PO PRN (06:19)
[2021-01-24] MEDS: busPIRone HCL 5 MG TABLET PO SCH ×3 (06:19→21:21)
[2021-01-24] MEDS ORDERED: PT OWN MED DRAWER 7, Y5N ONE ×2 (08:44→14:03)
[2021-01-24] MEDS: METHOCARBAMOL 500 MG TABLET PO SCH ×4 (09:38→21:29)
[2021-01-24] MEDS: PRENATAL VITAMINS W/ FOLIC ACID TABLET (FP) PO SCH (09:39)
[2021-01-24] MEDS: NICOTINE 14 MG/24 HOURS TOPICAL PATCH TD SCH (09:39)
[2021-01-24] MEDS: QUEtiapine FUMARATE 200 MG TABLET PO SCH ×2 (09:40→21:21)
[2021-01-24] MEDS ORDERED: MASKS NR ONE (12:44)
[2021-01-24] MEDS: NORTRIPTYLINE HCL 10 MG CAPSULE PO SCH (21:20)
[2021-01-24] MEDS: MELATONIN 5 MG TABLETS PO SCH (21:21)
[2021-01-24] MEDS: THIAMINE HCL 100 MG TABLET (FP) PO SCH (21:21)
[2021-01-25] MEDS: ALBUTEROL SO4 HFA INHALER IH PRN (00:50)
[2021-01-25] MEDS ORDERED: PT OWN MED DRAWER 7, Y5N ONE ×4 (03:09→19:53)
[2021-01-25] MEDS: busPIRone HCL 5 MG TABLET PO SCH ×3 (06:25→21:13)
[2021-01-25] MEDS: hydrOXYzine PAMOATE 50 MG CAPSULE (FP) PO PRN ×3 (06:25→17:48)
[2021-01-25] MEDS: QUEtiapine FUMARATE 200 MG TABLET PO SCH ×2 (09:09→21:13)
[2021-01-25] MEDS: NICOTINE 14 MG/24 HOURS TOPICAL PATCH TD SCH (09:09)
[2021-01-25] MEDS: PRENATAL VITAMINS W/ FOLIC ACID TABLET (FP) PO SCH (09:09)
[2021-01-25] MEDS: METHOCARBAMOL 500 MG TABLET PO SCH ×4 (09:09→21:14)
[2021-01-25] MEDS: THIAMINE HCL 100 MG TABLET (FP) PO SCH (21:13)
[2021-01-25] MEDS: MELATONIN 5 MG TABLETS PO SCH (21:13)
[2021-01-25] MEDS: NORTRIPTYLINE HCL 10 MG CAPSULE PO SCH (21:14)
[2021-01-26] MEDS ORDERED: PT OWN MED DRAWER 7, Y5N ONE ×3 (03:09→16:05)
[2021-01-26] MEDS: busPIRone HCL 5 MG TABLET PO SCH ×3 (06:25→21:03)
[2021-01-26] MEDS: hydrOXYzine PAMOATE 50 MG CAPSULE (FP) PO PRN ×4 (06:25→18:33)
[2021-01-26 08:08] LABS: SARS-CoV-2 NAA Not Detected (Not Detected)
[2021-01-26] MEDS: PRENATAL VITAMINS W/ FOLIC ACID TABLET (FP) PO SCH (10:32)
[2021-01-26] MEDS: NICOTINE 14 MG/24 HOURS TOPICAL PATCH TD SCH (10:32)
[2021-01-26] MEDS: QUEtiapine FUMARATE 200 MG TABLET PO SCH ×2 (10:32→21:01)
[2021-01-26] MEDS: METHOCARBAMOL 500 MG TABLET PO SCH ×4 (10:32→21:01)
[2021-01-26] MEDS: MELATONIN 5 MG TABLETS PO SCH (21:01)
[2021-01-26] MEDS: THIAMINE HCL 100 MG TABLET (FP) PO SCH (21:01)
[2021-01-26] MEDS: NORTRIPTYLINE HCL 10 MG CAPSULE PO SCH (21:02)
[2021-01-26] MEDS: COLLOIDAL OATMEAL 1 BAR EACH TP PRN (22:47)
[2021-01-27] MEDS: hydrOXYzine PAMOATE 50 MG CAPSULE (FP) PO PRN ×2 (06:27→21:21)
[2021-01-27] MEDS: busPIRone HCL 5 MG TABLET PO SCH ×3 (07:00→21:21)
[2021-01-27] MEDS: PRENATAL VITAMINS W/ FOLIC ACID TABLET (FP) PO SCH (09:48)
[2021-01-27] MEDS: METHOCARBAMOL 500 MG TABLET PO SCH ×4 (09:48→21:21)
[2021-01-27] MEDS: QUEtiapine FUMARATE 200 MG TABLET PO SCH (09:48)
[2021-01-27] MEDS: NICOTINE 14 MG/24 HOURS TOPICAL PATCH TD SCH (09:49)
[2021-01-27] MEDS ORDERED: PT OWN MED DRAWER 7, Y5N ONE (13:29)
[2021-01-27] MEDS: MELATONIN 5 MG TABLETS PO SCH (21:21)
[2021-01-27] MEDS: THIAMINE HCL 100 MG TABLET (FP) PO SCH (21:21)
[2021-01-27] MEDS: QUEtiapine FUMARATE 300 MG TABLET PO SCH (21:23)
[2021-01-27] MEDS: MIRTAZAPINE 15 MG TABLET (FP) PO SCH (21:45)
[2021-01-28] MEDS: hydrOXYzine PAMOATE 50 MG CAPSULE (FP) PO PRN ×3 (01:40→14:08)
[2021-01-28] MEDS ORDERED: PT OWN MED DRAWER 7, Y5N ONE ×2 (03:59→12:44)
[2021-01-28] MEDS: busPIRone HCL 5 MG TABLET PO SCH ×3 (06:30→21:19)
[2021-01-28] MEDS: NICOTINE 14 MG/24 HOURS TOPICAL PATCH TD SCH (10:00)
[2021-01-28] MEDS: QUEtiapine FUMARATE 300 MG TABLET PO SCH ×2 (10:00→21:19)
[2021-01-28] MEDS: PRENATAL VITAMINS W/ FOLIC ACID TABLET (FP) PO SCH (10:00)
[2021-01-28] MEDS: METHOCARBAMOL 500 MG TABLET PO SCH ×4 (10:00→21:19)
[2021-01-28] MEDS: MELATONIN 5 MG TABLETS PO PRN (21:18)
[2021-01-28] MEDS: THIAMINE HCL 100 MG TABLET (FP) PO SCH (21:18)
[2021-01-28] MEDS: MIRTAZAPINE 15 MG TABLET (FP) PO SCH (21:19)
[2021-01-29] MEDS ORDERED: PT OWN MED DRAWER 7, Y5N ONE ×2 (03:26→13:41)
[2021-01-29] MEDS: hydrOXYzine PAMOATE 50 MG CAPSULE (FP) PO PRN (03:30)
[2021-01-29] MEDS: busPIRone HCL 5 MG TABLET PO SCH ×3 (06:38→21:24)
[2021-01-29] MEDS: QUEtiapine FUMARATE 300 MG TABLET PO SCH ×2 (09:50→21:24)
[2021-01-29] MEDS: METHOCARBAMOL 500 MG TABLET PO SCH ×4 (09:50→21:24)
[2021-01-29] MEDS: PRENATAL VITAMINS W/ FOLIC ACID TABLET (FP) PO SCH (09:50)
[2021-01-29] MEDS: NICOTINE 14 MG/24 HOURS TOPICAL PATCH TD SCH (09:51)
[2021-01-29] MEDS: MIRTAZAPINE 15 MG TABLET (FP) PO SCH (21:24)
[2021-01-29] MEDS: MELATONIN 5 MG TABLETS PO PRN (21:24)
[2021-01-29] MEDS: THIAMINE HCL 100 MG TABLET (FP) PO SCH (21:24)
[2021-01-30] MEDS: hydrOXYzine PAMOATE 50 MG CAPSULE (FP) PO PRN ×2 (01:47→06:39)
[2021-01-30] MEDS ORDERED: PT OWN MED DRAWER 7, Y5N ONE (03:16)
[2021-01-30] MEDS: busPIRone HCL 5 MG TABLET PO SCH ×3 (06:39→21:15)
[2021-01-30] MEDS: PRENATAL VITAMINS W/ FOLIC ACID TABLET (FP) PO SCH (09:30)
[2021-01-30] MEDS: NICOTINE 14 MG/24 HOURS TOPICAL PATCH TD SCH (09:30)
[2021-01-30] MEDS: QUEtiapine FUMARATE 300 MG TABLET PO SCH ×2 (09:30→21:15)
[2021-01-30] MEDS: METHOCARBAMOL 500 MG TABLET PO SCH ×4 (09:30→21:15)
[2021-01-30] MEDS: COLLOIDAL OATMEAL 1 BAR EACH TP PRN (13:10)
[2021-01-30] MEDS: MIRTAZAPINE 15 MG TABLET (FP) PO SCH (21:15)
[2021-01-30] MEDS: THIAMINE HCL 100 MG TABLET (FP) PO SCH (21:15)
[2021-01-30] MEDS ORDERED: SUVOREXANT 10 MG TABLET PO PRN (22:00)
[2021-01-31] MEDS ORDERED: PT OWN MED DRAWER 7, Y5N ONE (03:19)
[2021-01-31] MEDS: busPIRone HCL 5 MG TABLET PO SCH (06:35)
[2021-01-31 07:00] VITALS: BP 116/74; PULSE 84; TEMP 97.2
== END 2021-01-31 09:14 | disposition home or self-care (01) | DRG 772 ==
LOC: YASAS 10:49 → Y3E 10:51
PROVIDERS: ADMIT Allergy & Immunology; ATTEND Allergy & Immunology
PROC: HZ42ZZZ Group Counseling for Substance Abuse Treatment, Cognitive-Behavioral (ICD-10-PCS; principal; 2021-01-22)
DX: F10.20 Alcohol dependence, uncomplicated (principal); F17.210 Nicotine dependence, cigarettes, uncomplicated; F19.24 Other psychoactive substance dependence with psychoactive substance-induced mood disorder; F20.9 Schizophrenia, unspecified; F31.9 Bipolar disorder, unspecified; F60.9 Personality disorder, unspecified; G47.00 Insomnia, unspecified
CPT/HCPCS: 93005; 93010; C9803; U0003; U0005